=== PATIENT | female | born 1950 | race Caucasian/White ===

== ENCOUNTER 2017-10-02 05:57 | Day surgery (SDC) | payer BC ==
[2017-09-29 11:59] VITALS: BMI 21.9
[~2017-10-02 05:57] MED LIST: DEXAMETHASONE SOD PHOSPHATE 10 MG/ML 1 ML VIAL IV ONE; LACTATED RINGERS 1,000 ML IV SCH; MIDAZOLAM 2 MG/2 ML VIAL IV PRN; ONDANSETRON ODT 4 MG TAB PO ONE; ceFAZolin IN SWFI 2 GM/20 ML SYRINGE IVP ONE; fentaNYL (PF) 50 MCG/ML 2 ML AMP IV PRN
[2017-10-02] MEDS ORDERED: LIDOCAINE 1% 20 ML VIAL (10MG/ML) FOR IV START INTRADERMA ONE (06:43)
[2017-10-02] MEDS ORDERED: ONDANSETRON 4 MG/2 ML VIAL IVP ONE (06:44)
[2017-10-02] MEDS ORDERED: MIDAZOLAM 2 MG/2 ML VIAL ONE (07:57)
[2017-10-02] MEDS ORDERED: LIDOCAINE 1% INJ 10MG/ML (20 ML MDV) ONE (07:57)
[2017-10-02] MEDS ORDERED: PROPOFOL 10 MG/ML 20 ML VIAL IV ONE (07:57)
[2017-10-02] MEDS ORDERED: fentaNYL (PF) 50 MCG/ML 2 ML AMP ONE (07:57)
[2017-10-02 08:48] VITALS: TEMP 97.4
[2017-10-02] MEDS: MORPHINE SULFATE 4 MG/0.8 ML SYRINGE (INJ) IVP ONE ×4 (09:00→09:22)
[2017-10-02] MEDS ORDERED: diphenhydrAMINE 50 MG/ML 1 ML VIAL IVP ONE (09:03)
--- NOTE | 2017-10-02 09:06 | FL ---
EXAMINATION TYPE: FL guidance operating room DATE OF EXAM: 10/02/2017 HISTORY: Flouroscopy time 17 seconds of fluoroscopy provided. IMPRESSION: 1. Fluoroscopy time.
[2017-10-02 11:41] VITALS: RESP 18
[2017-10-02] MEDS ORDERED: HYDROcodone/APAP 5-325MG 1 EACH TAB PO ONE (12:55)
[2017-10-02 13:20] VITALS: BP 116/69; PULSE 72
--- NOTE | 2017-10-02 13:29 | OP ---
OPERATIVE REPORT DATE OF SERVICE: 10/02/2017. SURGEON: Ion Zaman DO. PRINT LINE SUPERVISOR: Olinda Lyn NP. PREOPERATIVE DIAGNOSIS: Dorsal displaced intra-articular fracture of the distal left radius. FINAL DIAGNOSIS: Dorsal displaced intra-articular fracture of the distal left radius. PROCEDURE PERFORMED: A closed reduction of a displaced fracture of the distal left radius with K-wire fixation. DESCRIPTION OF PROCEDURE: The patient was taken to the operative suite and placed in supine position. General inhalation anesthesia was performed by the department of anesthesiology. A gentle closed reduction was performed. A Betadine prep was then carried out in usual manner. Repeat reduction was carried out and C-arm image intensification used. 0.45 K-wires x4 were utilized in stabilizing this fracture of the distal radius. Alignment was maintained.The K-wires were then bent and clipped. A sterile pressure dressing was applied and a dorsal volar OCL splint was applied. The patient was transferred to the recovery room in satisfactory postop condition. GROSS PATHOLOGY: Dorsal displaced intra-articular fracture of the distal left radius. MMODL / IJN: [id number] / [facility]
== END 2017-10-02 13:33 | disposition home or self-care (01) ==
LOC: OR 05:57
PROVIDERS: ATTEND Orthopaedic Surgery
DX: S52.572A Other intraarticular fracture of lower end of left radius, initial encounter for closed fracture (principal); W19.XXXA Unspecified fall, initial encounter; Y92.000 Kitchen of unspecified non-institutional (private) residence as the place of occurrence of the external cause; I10 Essential (primary) hypertension; Z79.899 Other long term (current) drug therapy; Z79.1 Long term (current) use of non-steroidal anti-inflammatories (NSAID); Z88.5 Allergy status to narcotic agent; F17.210 Nicotine dependence, cigarettes, uncomplicated
CPT/HCPCS: 73100; 25606; J2250; J1200; J1100; J2405; J2001; J3010; J2704; J0690; J2270

== ENCOUNTER 2019-12-22 08:49 | Day surgery (SDC) | payer BC ==
[2019-12-19 15:53] VITALS: BMI 21.4
[~2019-12-22 08:49] MED LIST changes: -DEXAMETHASONE SOD PHOSPHATE 10 MG/ML 1 ML VIAL IV ONE; -MIDAZOLAM 2 MG/2 ML VIAL IV PRN; -ONDANSETRON ODT 4 MG TAB PO ONE; -ceFAZolin IN SWFI 2 GM/20 ML SYRINGE IVP ONE; -fentaNYL (PF) 50 MCG/ML 2 ML AMP IV PRN
[2019-12-22 09:14] VITALS: TEMP 98.1
[2019-12-22] MEDS ORDERED: LIDOCAINE 1% (10MG/ML) FOR IV START INTRADERMA ONE (09:15)
[2019-12-22] MEDS ORDERED: LACTATED RINGERS 1,000 ML IV ONE (09:15)
[2019-12-22] MEDS ORDERED: PROPOFOL 10 MG/ML 20 ML VIAL IV ONE (09:49)
--- NOTE | 2019-12-22 09:53 | P.GSHP ---
History of Present Illness H&P Date: 12/22/19 Chief Complaint: Anemia This a 69-year-old female been safe for EGD and colonoscopy. Patient has had issues with anemia. She presents for GI workup. Patient has a known history of hemorrhoids. She has had some mild rectal bleeding. Past Medical History Past Medical History: Hypertension Additional Past Medical History / Comment(s): hx of hemorrhoids History of Any Multi-Drug Resistant Organisms: None Reported Past Surgical History: Cholecystectomy, Orthopedic Surgery Additional Past Surgical History / Comment(s): biliary stents in and removed, pins left wrist Past Anesthesia/Blood Transfusion Reactions: No Reported Reaction Past Psychological History: Depression Past Alcohol Use History: Occasional Additional Past Alcohol Use History / Comment(s): quit smoking 07/2019, SMOKED FOR 50 YEARS. HX OF 1 PPD SMOKER Past Drug Use History: None Reported - Past Family History Mother Family Medical History: No Reported History Medications and Allergies Home Medications Medication Instructions Recorded Confirmed Type PARoxetine HCL [Paxil] 40 mg PO QAM 09/29/17 12/19/19 History Quinapril HCl [Accupril] 10 mg PO QAM 09/29/17 12/19/19 History Ferrous Sulfate [Feosol] 325 mg PO DAILY 12/19/19 12/19/19 History [place]-3 Fatty Acids/Fish Oil [Fish 1 each PO DAILY 12/19/19 12/19/19 History Oil 1,000 mg Softgel] Allergies Allergy/AdvReac Type Severity Reaction Status Date / Time codeine AdvReac Unknown Nausea & Verified 12/19/19 15:50 Vomiting Surgical - Exam Vital Signs Temp Pulse Resp BP Pulse Ox 98.1 F 99 18 190/81 95 12/22/19 09:13 12/22/19 09:13 12/22/19 09:13 12/22/19 09:13 12/22/19 09:13 - General well developed, well nourished, no distress - Eyes PERRL - ENT normal pinna - Neck no masses - Respiratory normal expansion - Cardiovascular Rhythm: regular - Abdomen Abdomen: soft, non tender Assessment and Plan Assessment: Anemia, GI bleed. We'll perform colonoscopy and EGD.
--- NOTE | 2019-12-22 10:16 | P.OP ---
Date of Procedure: 12/22/19 Preoperative Diagnosis: Anemia Postoperative Diagnosis: Antral gastritis Mild esophagitis Transverse colon polyp No evidence of upper or lower GI bleed Procedure(s) Performed: EGD Colonoscopy Anesthesia: MAC Surgeon: Nathan Mcneill Pathology: other (Antrum, esophagus, transverse colon polyp) Condition: stable Disposition: PACU Description of Procedure: She received IV sedation. The gastroscope placed oropharynx passed in the esophagus and stomach. Scope then placed through the pylorus. The first and second portion of the duodenum appeared normal. Scope was then brought back the antrum this. Mildly inflamed. A biopsies performed. Scope was unretroflexed and remainder of the stomach appeared normal. GE junction was at 40 cm the distal esophagus appeared minimally inflamed a biopsies performed. Scope was withdrawn for patient. There is no evidence of upper GI bleed. Next digital rectal exam was performed and there were some minimal internal hemorrhoids. Flexible colonoscope was then placed patient anus passed throughout the entire colon. Ileocecal valve was visualized. Cecum appeared normal. The ascending colon normal. The transverse colon there was a polyp seen this removed with the snare. The remainder of the transverse colon descending colon and sigmoid colon appeared normal. Scope was then brought back the rectum this appeared normal. Scope withdrawn the patient's. There was no evidence of any lower GI bleed.
[2019-12-22 10:29] VITALS: RESP 16
[2019-12-22 10:44] VITALS: BP 116/56; PULSE 79
== END 2019-12-22 11:08 | disposition home or self-care (01) ==
LOC: ORWHC2ENDO 08:49
PROVIDERS: ATTEND Surgery
DX: K63.5 Polyp of colon (principal); K29.50 Unspecified chronic gastritis without bleeding; D50.9 Iron deficiency anemia, unspecified; K64.8 Other hemorrhoids; K21.0 Gastro-esophageal reflux disease with esophagitis; I10 Essential (primary) hypertension; F32.9 Major depressive disorder, single episode, unspecified; K76.0 Fatty (change of) liver, not elsewhere classified; Z90.49 Acquired absence of other specified parts of digestive tract; Z98.890 Other specified postprocedural states; Z87.891 Personal history of nicotine dependence; Z79.899 Other long term (current) drug therapy; Z88.5 Allergy status to narcotic agent
CPT/HCPCS: 88305; 45385; 43239; J2704

== ENCOUNTER 2020-04-05 17:24 | Inpatient (IN) | payer BC ==
[2020-04-05] MEDS ORDERED: PIPERACILLIN-TAZOBACTAM 3.375 GM in SODIUM CHLORIDE 0.9% 100 ML IVPB STA (18:10)
--- NOTE | 2020-04-05 18:14 | ED ---
General Adult HPI - General Chief complaint: Recheck/Abnormal Lab/Rx Stated complaint: weak/ams Time Seen by Provider: 04/05/20 17:37 Source: patient, family Mode of arrival: wheelchair Limitations: no limitations - History of Present Illness Initial comments: Dictation was produced using [employer] dictation software. please excuse any grammatical, word or spelling errors. This patient was cared for during a federal and state declared [place] [facility] [place] [place] [facility] secondary to Covid 19 Chief Complaint: Patient is 69-year-old female presents to the emergency department for fever and jaundice. History of Present Illness: [id number] female she presents to the emergency department for fever and jaundice. Patient was at her primary care physician's office when she was told to come to the emergency department for fever and jaundice. Patient states she's noticed she been having yellowing of the skin since Thursday. Today it started to get significantly worse. Patient has had had 2 or 3 other episodes similar to this that would resolve on its own over the course of one week. Slightly nauseated with diffuse abdominal pain. She has h istory of cholecystectomy. In regards to past episodes of similar symptoms at bedside reports that there was no definitive answer as to why she had jaundice at the time. She patient is non-alcoholic The ROS documented in this emergency department record has been reviewed and confirmed by me. Those systems with pertinent positive or negative responses have been documented in the HPI. All other systems are other negative and/or noncontributory. PHYSICAL EXAM: General Impression: Alert and oriented x3, jaundiced HEENT: Normocephalic atraumatic, extra-ocular movements intact, pupils equal and reactive to light bilaterally, mucous membranes moist, scleral icterus Cardiovascular: Heart regular rate and rhythm Chest: Able to complete full sentences, no retractions, no tachypnea Abdomen: abdomen soft, mild diffuse abdominal tenderness, neg Reynolds sign, non- distended, no organomegaly Musculoskeletal: Pulses present and equal in all extremities, no peripheral edema Motor: no focal deficits noted Neurological: CN II-XII grossly intact, no focal motor or sensory deficits noted Skin: Intact with no visualized rashes Psych: Normal affect and mood ED course: 69-year-old female presents to jaundice and fever. Signs upon arrival shows to 102.7, heart rate of 137, rest of vital signs within acceptable limits. The yellow and having a fever patient looks well at bedside. She c omplains of some mild nausea. Not appear to be in any acute distress.Laboratory evaluation obtained. No leukocytosis. Thrombocytopenia of 95. Rest of labs are within acceptable limits. Coag panel is unremarkable. Metabolic panel shows sodium of 1:30. Lactic acidosis 3.4, AST 183, ALT is 138, alk phos of 564. Total bilirubin of 22.5, conjugated 12.5, conjugated 6.2. Given pyrexia and jaundice is concern of ascending cholangitis. Patient certain Zosyn. Computed tomography scan of the abdomen and pelvis shows dilated biliary tree likely distal common bile duct obstruction suspected. Radiology recommends ERCP or MRCP. Case was discussed with Dr. Calvo, on-call for GI. She requested patient be nothing by mouth at midnight for likely procedure tomorrow morning. Case is discussed with Dr. Blas Goldstein who is willing to accept patient's care in the hospital. At bedside and found to be in stable medical condition. She'll be admitted. Patient not showing any signs of end organ dysfunction. However her clinical presentation concerning for early sepsis. Patient given a fluid bolus and started on maintenance fluids. Pending blood cultures. EKG interpretation: Ventricular rate 133, sinus tachycardia,. 134, QRS 70, QTc 431. No ME prolongation, no QTC prolongation, no ST or T-wave changes noted. EKG compared to 10/02/2017 showing no changes. Overall, this EKG is unremarkable - Related Data Home Medications Medication Instructions Recorded Confirmed Quinapril HCl [Accupril] 10 mg PO QAM 09/29/17 04/05/20 Ciprofloxacin HCl [Cipro] 250 mg PO Q12HR 04/05/20 04/05/20 PARoxetine HCL [Paxil] 40 mg PO DAILY 04/05/20 04/05/20 Prevident 1 dose PO BID 04/05/20 04/05/20 Allergies Allergy/AdvReac Type Severity Reaction Status Date / Time codeine AdvReac Unknown Nausea & Verified 04/05/20 18:52 Vomiting Review of Systems ROS Statement: Those systems with pertinent positive or pertinent negative responses have been documented in the HPI. ROS Other: All systems not noted in ROS Statement are negative. Past Medical History Past Medical History: Hypertension Additional Past Medical History / Comment(s): hx of hemorrhoids, pancreatitis History of Any Multi-Drug Resistant Organisms: None Reported Past Surgical History: Cholecystectomy, Orthopedic Surgery Additional Past Surgical History / Comment(s): biliary stents in and removed, pins left wrist Past Anesthesia/Blood Transfusion Reactions: No Reported Reaction Past Psychological History: Depression Smoking Status: Current every day smoker Past Alcohol Use History: Occasional Past Drug Use History: None Reported - Past Family History Mother Family Medical History: No Reported History General Exam Limitations: no limitations Course Vital Signs 04/05/20 04/05/20 04/05/20 17:28 18:02 18:59 Temperature 100.4 F H 102.7 F H Pulse Rate 129 H 137 H 147 H Respiratory 18 18 18 Rate Blood Pressure 130/80 160/87 111/60 O2 Sat by Pulse 98 98 Oximetry 04/05/20 19:55 Temperature 100.2 F H Pulse Rate 129 H Respiratory 16 Rate Blood Pressure 136/55 O2 Sat by Pulse 96 Oximetry Medical Decision Making - Lab Data Result diagrams: 04/05/20 18:09 04/05/20 18:09 Lab Results 04/05/20 04/05/20 04/05/20 Range/Units 18:09 18:09 18:09 WBC 8.4 (3.8-10.6) k/uL RBC 3.71 L (3.80-5.40) m/uL Hgb 10.9 L (11.4-16.0) gm/dL Hct 32.7 L (34.0-46.0) % MCV 88.3 (80.0-100.0) fL MCH 29.4 (25.0-35.0) pg MCHC 33.3 (31.0-37.0) g/dL RDW 18.0 H (11.5-15.5) % Plt Count 95 L (150-450) k/uL Neutrophils % (Manual) 67 % Band Neuts % (Manual) 2 % Lymphocytes % (Manual) 19 % Monocytes % (Manual) 6 % Eosinophils % (Manual) 1 % Metamyelocytes % 5 % Myelocytes % 2 % Neutrophils # (Manual) 5.70 (1.3-7.7) k/uL Lymphocytes # (Manual) 1.60 (1.0-4.8) k/uL Monocytes # (Manual) 0.50 (0-1.0) k/uL Eosinophils # (Manual) 0.08 (0-0.7) k/uL Metamyelocytes # (Man) 0.42 H (0) k/uL Myelocytes # (Manual) 0.17 H (0) k/uL Nucleated RBCs 1 H (0-0) /100 WBC Manual Slide Review Performed Toxic Granulation Present Large Platelets Present Polychromasia Present Anisocytosis Slight PT 10.2 (9.0-12.0) sec INR 1.0 (<1.2) APTT 22.4 (22.0-30.0) sec Sodium 130 L (137-145) mmol/L Potassium 3.6 (3.5-5.1) mmol/L Chloride 94 L (98-107) mmol/L Carbon Dioxide 22 (22-30) mmol/L Anion Gap 14 mmol/L BUN 26 H (7-17) mg/dL Creatinine 1.12 H (0.52-1.04) mg/dL Est GFR (CKD-EPI)AfAm 57 (>60 ml/min/1.73 sqM) Est GFR (CKD-EPI)NonAf 50 (>60 ml/min/1.73 sqM) Glucose 147 H (74-99) mg/dL Plasma Lactic Acid Addi (0.7-2.0) mmol/L Calcium 9.0 (8.4-10.2) mg/dL Magnesium 1.9 (1.6-2.3) mg/dL Total Bilirubin 22.5 H* (0.2-1.3) mg/dL Conjugated Bilirubin 12.5 H (0.0-0.3) mg/dL Unconjugated Bilirubin 6.2 H (0.0-1.1) mg/dL Delta Bilirubin 3.8 H (0.0-0.2) mg/dL AST 183 H (14-36) U/L ALT 138 H (4-34) U/L Alkaline Phosphatase 564 H (38-126) U/L Total Protein 8.1 (6.3-8.2) g/dL Albumin 4.3 (3.5-5.0) g/dL Lipase 158 (23-300) U/L 04/05/20 Range/Units 18:09 WBC (3.8-10.6) k/uL RBC (3.80-5.40) m/uL Hgb (11.4-16.0) gm/dL Hct (34.0-46.0) % MCV (80.0-100.0) fL MCH (25.0-35.0) pg MCHC (31.0-37.0) g/dL RDW (11.5-15.5) % Plt Count (150-450) k/uL Neutrophils % (Manual) % Band Neuts % (Manual) % Lymphocytes % (Manual) % Monocytes % (Manual) % Eosinophils % (Manual) % Metamyelocytes % % Myelocytes % % Neutrophils # (Manual) (1.3-7.7) k/uL Lymphocytes # (Manual) (1.0-4.8) k/uL Monocytes # (Manual) (0-1.0) k/uL Eosinophils # (Manual) (0-0.7) k/uL Metamyelocytes # (Man) (0) k/uL Myelocytes # (Manual) (0) k/uL Nucleated RBCs (0-0) /100 WBC Manual Slide Review Toxic Granulation Large Platelets Polychromasia Anisocytosis PT (9.0-12.0) sec INR (<1.2) APTT (22.0-30.0) sec Sodium (137-145) mmol/L Potassium (3.5-5.1) mmol/L Chloride (98-107) mmol/L Carbon Dioxide (22-30) mmol/L Anion Gap mmol/L BUN (7-17) mg/dL Creatinine (0.52-1.04) mg/dL Est GFR (CKD-EPI)AfAm (>60 ml/min/1.73 sqM) Est GFR (CKD-EPI)NonAf (>60 ml/min/1.73 sqM) Glucose (74-99) mg/dL Plasma Lactic Acid Addi 3.4 H* (0.7-2.0) mmol/L Calcium (8.4-10.2) mg/dL Magnesium (1.6-2.3) mg/dL Total Bilirubin (0.2-1.3) mg/dL Conjugated Bilirubin (0.0-0.3) mg/dL Unconjugated Bilirubin (0.0-1.1) mg/dL Delta Bilirubin (0.0-0.2) mg/dL AST (14-36) U/L ALT (4-34) U/L Alkaline Phosphatase (38-126) U/L Total Protein (6.3-8.2) g/dL Albumin (3.5-5.0) g/dL Lipase (23-300) U/L Disposition Clinical Impression: Biliary obstruction Disposition: ADMITTED IP TO THIS HOSP Condition: Fair Referrals: Tete Goldstein DO [Primary Care Provider] - 1-2 days Time of Disposition: 20:09
[2020-04-05 18:30] LABS: Albumin 4.3 g/dL (3.5-5.0); Bilirubin, Conjugated 12.5 mg/dL (0.0-0.3); Bilirubin, Delta 3.8 mg/dL (0.0-0.2); Bilirubin,Unconjugated 6.2 mg/dL (0.0-1.1); Magnesium 1.9 mg/dL (1.6-2.3); Potassium 3.6 mmol/L (3.5-5.1); Total Protein 8.1 g/dL (6.3-8.2)
--- NOTE | 2020-04-05 18:34 | XR ---
EXAMINATION TYPE: XR chest 1V portable DATE OF EXAM: 04/05/2020 COMPARISON: NONE HISTORY: Fever jaundice TECHNIQUE: Single view FINDINGS: There is no heart failure nor confluent pneumonic infiltrate. Costophrenic angles are clear . There are chest leads. Bony thorax is intact. IMPRESSION: No active cardiopulmonary disease. Normal heart.
[2020-04-05 18:36] LABS: Anisocytosis Slight; HCT 32.7 % (34.0-46.0); HGB 10.9 gm/dL (11.4-16.0); MCH 29.4 pg (25.0-35.0); MCHC 33.3 g/dL (31.0-37.0); MCV 88.3 fL (80.0-100.0); Mean Platelet Volume 10.3; RBC 3.71 m/uL (3.80-5.40)
[2020-04-05 18:45] LABS: Partial Thromboplastin Time 22.4 sec (22.0-30.0); Prothrombin Time 10.2 sec (9.0-12.0)
[2020-04-05] MEDS ORDERED: ACETAMINOPHEN TAB 500 MG TAB PO STA (18:46)
[2020-04-05 18:53] LABS: Band Neutrophils % 2 %; Metamyelocytes % 5 %; Myelocytes # (M) 0.17 k/uL (0); Myelocytes % 2 %; Neutrophils % (M) 67 %; Nucleated Red Blood Cells 1 /100 WBC (0-0); Total Cells Counted 200
[2020-04-05 18:54] LABS: Eosinophils # (M) 0.08 k/uL (0-0.7); Large Platelets Present; Metamyelocytes # (M) 0.42 k/uL (0); Polychromasia Present; Toxic Granulation Present; WBC 8.4 k/uL (3.8-10.6)
[2020-04-05 18:55] LABS: Platelet Count 95 k/uL (150-450)
[2020-04-05 19:00] LABS: Total Bilirubin 22.5 mg/dL (0.2-1.3)
--- NOTE | 2020-04-05 19:52 | CT ---
EXAMINATION TYPE: CT abdomen pelvis w con DATE OF EXAM: 04/05/2020 COMPARISON: None HISTORY: Abdominal pain, fever, jaundiced, weak CT DLP: 655.5 mGycm Automated exposure control for dose reduction was used. CONTRAST: Performed with IV Contrast, patient injected with 100 mL of Isovue 300. Images were obtained from the diaphragm to the floor the pelvis with IV contrast. Lung bases are clear. There is no pleural effusion. Heart size is normal. There is no pericardial eff usion. There are clips from cholecystectomy. There is dilation of the intra and extrahepatic bile ducts. Com mon bile duct measures 3.2 cm. There is no pancreatic mass. Spleen is large and measures 12 x 9 cm. T he stomach is intact. There is no adrenal mass. Kidneys show satisfactory contrast opacification. There is no hydronephrosi s. There is no sign of renal mass. There is no retroperitoneal adenopathy. Ureters are not dilated. T he bladder distends smoothly. There is no inguinal hernia. There is some contrast material in the sig moid colon. There is no pelvic mass. There is no free fluid in the pelvis. There is no mesenteric edema. There is no ascites or free air. Lumbar vertebra have normal alignment. There is 10% wedging of L2 vertebral body that is probably old . The bony pelvis is intact. The hip joints are intact. IMPRESSION: Dilated biliary tree. Distal common bile duct obstruction is suspected. No obstructing mass seen. Thi s could relate to a stricture or common duct stone. ERCP or MRCP exam recommended for further evaluat ion if clinically indicated.
[2020-04-05] MEDS ORDERED: SODIUM CHLORIDE 0.9% 1,000 ML IV STA (19:58)
[2020-04-05] MEDS ORDERED: NALOXONE 0.4 MG/ML 1 ML VIAL IV PRN (20:03)
[2020-04-05] MEDS: SODIUM CHLORIDE 0.9% 1,000 ML IV SCH (21:29)
[2020-04-05 22:56] LABS: Appearance,Urine Cloudy (Clear); Bacteria,Urine Rare /hpf; Bilirubin,Urine 2+ (Negative); Blood,Urine Trace (Negative); Color,Urine Dark Yellow; Glucose,Urine (UA) Negative (Negative); Ketones,Urine Negative (Negative); Leukocyte Esterase,Urine Negative (Negative); Nitrite,Urine Negative (Negative); PH, Urine 5.5 (5.0-8.0); Protein,Urine Trace (Negative); RBC,Urine 1 /hpf (0-5); Specific Gravity,Urine 1.039 (1.001-1.035); Squamous Epithelial Cell,Urine 5 /hpf (0-4); WBC,Urine 12 /hpf (0-5)
[2020-04-06] MEDS: SODIUM CHLORIDE 0.9% 1,000 ML IV SCH ×3 (04:25→22:44)
[2020-04-06 09:08] LABS: Anisocytosis Slight; HCT 27.5 % (34.0-46.0); Hypochromasia Slight; MCH 28.8 pg (25.0-35.0); MCHC 32.2 g/dL (31.0-37.0); MCV 89.5 fL (80.0-100.0); Mean Platelet Volume 11.9; RBC 3.07 m/uL (3.80-5.40); RDW 18.2 % (11.5-15.5)
[2020-04-06 09:12] LABS: Platelet Count 39 k/uL (150-450)
[2020-04-06 09:13] LABS: HGB 8.9 gm/dL (11.4-16.0)
[2020-04-06 09:22] LABS: ALT 195 U/L (4-34); AST 330 U/L (14-36); African American GFR (CKD) >90 (>60 ml/min/1.73 sqM); Albumin 3.1 g/dL (3.5-5.0); Alkaline Phosphatase 364 U/L (38-126); Amylase <30 U/L (30-110); Anion Gap 11 mmol/L; Blood Urea Nitrogen 19 mg/dL (7-17); Calcium 7.8 mg/dL (8.4-10.2); Carbon Dioxide 19 mmol/L (22-30); Chloride 102 mmol/L (98-107); Glucose 105 mg/dL (74-99); Lipase 33 U/L (23-300); Non-African American GFR(CKD) 80 (>60 ml/min/1.73 sqM); Potassium 3.2 mmol/L (3.5-5.1); Sodium 132 mmol/L (137-145); Total Protein 6.4 g/dL (6.3-8.2)
[2020-04-06 09:23] LABS: Total Bilirubin 20.1 mg/dL (0.2-1.3)
[2020-04-06 09:26] LABS: Toxic Granulation Present
[2020-04-06 09:34] LABS: Band Neutrophils % 4 %; Metamyelocytes # (M) 0.25 k/uL (0); Metamyelocytes % 2 %; Myelocytes % 1 %; Neutrophils % (M) 75 %; Nucleated Red Blood Cells 1 /100 WBC (0-0); Total Cells Counted 200
[2020-04-06 09:35] LABS: Blast Cells # (M) 0.12 k/uL (0); Lymphocytes # (M) 1.12 k/uL (1.0-4.8); Monocytes # (M) 1.12 k/uL (0-1.0); Myelocytes # (M) 0.12 k/uL (0); Toxic Vacuolation Present; WBC 12.4 k/uL (3.8-10.6)
[2020-04-06] MEDS: PIPERACILLIN-TAZOBACTAM 3.375 GM in SODIUM CHLORIDE 0.9% 100 ML IVPB SCH ×3 (09:41→23:21)
[2020-04-06] MEDS: PARoxetine 20 MG TAB PO SCH (09:41)
[2020-04-06] MEDS: lisinopriL 10 MG TAB PO SCH (09:41)
[2020-04-06] MEDS ORDERED: Potassium Replacement Protocol 1 EACH MISC MISCELLANE PRN (11:00)
[2020-04-06] MEDS: POTASSIUM CHLORIDE ER 20 MEQ TAB.ER PO SCH ×2 (11:09→12:25)
[2020-04-06] MEDS ORDERED: INDOMETHACIN 50MG SUPPOSITORY RECTAL ONE (12:00)
[2020-04-06] MEDS ORDERED: IV FLUID CONTINUATION 1,000 ML IV ONE (14:09)
[2020-04-06] MEDS ORDERED: IOPAMIDOL-300 50ML BTL INJ ONE ×2 (14:10→14:21)
[2020-04-06] MEDS ORDERED: PROPOFOL 10 MG/ML 20 ML VIAL IV ONE (14:15)
[2020-04-06] MEDS ORDERED: LIDOCAINE 1% INJ 10MG/ML (20 ML MDV) ONE (14:15)
[2020-04-06] MEDS ORDERED: GLYCOPYRROLATE 0.2 MG/ML 2 ML VIAL ONE (14:15)
--- NOTE | 2020-04-06 14:52 | P.PCN ---
Date of Procedure: 04/06/20 Procedure(s) Performed: Brief history: Patient is a year-old pleasant lady scheduled for an ERCP as part of evaluation of abdominal pain and jaundice for the last 2 weeks' duration. She came into the ER last night and had a fever of 102 with mild leukocytosis and a CAT scan showed dilated CBD measuring 3 cm with no masses or filling defects identified. The patient had prior history of CBD stones for which she underwent an ERCP with stone extraction and CBD stent placement and March 2017. Subsequently she did have cholecystectomy done. She is scheduled for an ERCP for possible choledocholithiasis. Patient was noted to have some cytopenia with a platelet count 39,000 and hence was transfused with platelets prior to the procedure. Procedure performed: ERCP with balloon stone extraction and CBD stent placement Preoperative diagnoses: Elevated LFTs/jaundice/ascending cholangitis IV sedation per anesthesia: Procedure: After informed consent was obtained from the patient and after the risks benefits and complications including bleeding perforation and pancreatitis explained in detail the patient was brought into the endoscopy unit. The patient was placed in prone position and IV conscious sedation was administered by anesthesia under continuous monitoring. The Olympus side-viewing duodenoscope was then inserted into the mouth and esophagus intubated without any difficulty. The scope was gradually advanced into the stomach and duodenum. The major papilla was identified without any difficulty. There was evidence of previous biliary sphincterotomy identified. Initial cannulation with a taper- tip catheter resulted in presentation the common bile duct which appeared significant dilated measuring 2 cm in diameter with multiple filling defects identified. There was mild intrahepatic biliary ductal dilation noted. There was free flowing of bile noted. At this time the catheter was removed and 11.5 limited balloon was passed into the common bile duct and was gently inflated and withdrawn. I was not able to withdraw the 11.5 mm balloon through the ampullary orifice. Then I used a 8.5 mm balloon and large amount of sludge along with small stones were extracted. This maneuver was repeated at least 15-20 times and once of bile became much more clear a 7-Dominican, 5 cm double pigtail stent was placed into the common bile duct for adequate biliary drainage. Extension of the biliary sphincterotomy was not performed because of thrombocytopenia. Patient tolerated the procedure well. Impression: Significantly dilated common bile duct with gradual tapering at the insertion into the ampulla with large multiple filling defects status post balloon extraction of multiple CBD stones and significant amount of sludge, followed by 7-Dominican 5 cm between stent placement Pancreatic duct intentionally not cannulated Recommendations: The findings of this examination were discussed with the patient as well as a family . At this time continue with antibiotics and monitor LFTs closely. We will plan a repeat ERCP with extension of biliary sphincterotomy an outpatient basis once her platelet counts normalized
--- NOTE | 2020-04-06 15:31 | FL ---
Fluoroscopy HISTORY: Dilated common bile duct 20 seconds fluoroscopy time supplied to the referring clinician. 4 intraoperative C-arm images docum ent the procedure. See dictated report from gastroenterology.
--- NOTE | 2020-04-06 15:42 | P.CONS ---
History of Present Illness - Reason for Consult Consult date: 04/06/20 Blast Cells, thrombocytopenia Requesting physician: Leslye Hallman - Chief Complaint Bicytopenia - History of Present Illness Ms. Montgomery is a pleasant 69 year old female who presents with jaundice and abdominal pain. CT scan showed concern for CBD obstruction. She underwent ERCP with Dr. Calvo revealing significantly dilated common bile duct likely a result of multiple CBD stones and significant amount of sludge. She initially presented to emergency with progressive jaundice, abdominal pain, and last night febrile 102. WBC on admission showed mild Leukocytosis, mainly neutrophils, Platelets decreased, today 39K, and some evidence of immature cells blasts 1%. Her Total bili greater than 20, LFTS increased. She had prior history of CBD stones for which she underwent an ERCP with stone extraction and CBD stent placement and March 2017. Subsequently she did have cholecystectomy done at that time. Apparently over the past year she has been becoming pregressively more anemic. She underwent endoscopy with general surgery (Dr. Mcneill) in December of this year which did not reveal any significant abnormalities. Review of Systems All systems: negative Constitutional: Reports as per HPI Past Medical History Past Medical History: Hypertension Additional Past Medical History / Comment(s): hx of hemorrhoids, pancreatitis History of Any Multi-Drug Resistant Organisms: None Reported Past Surgical History: Cholecystectomy, Orthopedic Surgery Additional Past Surgical History / Comment(s): biliary stents in and removed, pins left wrist Past Anesthesia/Blood Transfusion Reactions: No Reported Reaction Past Psychological History: Depression Smoking Status: Current every day smoker Past Alcohol Use History: Occasional Additional Past Alcohol Use History / Comment(s): quit smoking 07/2019, SMOKED FOR 50 YEARS. HX OF 1 PPD SMOKER Past Drug Use History: None Reported - Past Family History Mother Family Medical History: No Reported History Medications and Allergies Home Medications Medication Instructions Recorded Confirmed Type Quinapril HCl [Accupril] 10 mg PO QAM 09/29/17 04/05/20 History Ciprofloxacin HCl [Cipro] 250 mg PO Q12HR 04/05/20 04/05/20 History PARoxetine HCL [Paxil] 40 mg PO DAILY 04/05/20 04/05/20 History Prevident 1 dose PO BID 04/05/20 04/05/20 History Allergies Allergy/AdvReac Type Severity Reaction Status Date / Time codeine AdvReac Unknown Nausea & Verified 04/05/20 18:52 Vomiting Physical Exam Vitals: Vital Signs Temp Pulse Pulse Resp BP BP Pulse Ox 04/06/20 15:22 98 14 128/70 98 04/06/20 14:00 97.7 F 96 18 04/06/20 12:00 119 H 18 97/58 97 04/06/20 08:00 98.6 F 117 H 22 129/64 95 04/06/20 06:11 100.4 F H 136 H 20 148/61 97 04/06/20 03:49 99.1 F 112 H 20 129/71 97 04/06/20 00:00 99.3 F 126 H 20 130/67 95 04/05/20 22:58 99.3 F 126 H 18 130/67 95 04/05/20 22:26 99.2 F 124 H 18 151/74 97 04/05/20 19:55 100.2 F H 129 H 16 136/55 96 04/05/20 18:59 147 H 18 111/60 98 04/05/20 18:02 102.7 F H 137 H 18 160/87 04/05/20 17:28 100.4 F H 129 H 18 130/80 98 Intake and Output 04/06/20 04/06/20 04/06/20 06:59 14:59 22:59 Intake Total 60 636 Output Total 150 Balance -90 636 Intake: IV 300 Oral 60 Blood Product 336 Platelet Pheresis Pas 336 Psoralen Unit [id number] Output: Urine 150 Other: # Voids 2 1 Weight 59.5 kg - Constitutional General appearance: cooperative, no acute distress - EENT Eyes: PERRLA, dentition normal ENT: hard of hearing, NA/AT, normal oropharynx - Neck supple - Respiratory Respiratory: bilateral: CTA - Cardiovascular Tachy Rhythm: regular leg Peripheral Edema: bilateral: Trace - Gastrointestinal General gastrointestinal: decreased bowel sounds, distended, hepatomegaly - Integumentary Integumentary: jaundiced - Neurologic non-focal - Musculoskeletal Musculoskeletal: generalized weakness, strength equal bilaterally - Psychiatric Psychiatric: A&O x's 3, appropriate affect Results CBC & Chem 7: 04/06/20 08:40 04/06/20 08:40 Labs: Abnormal Lab Results - Last 24 Hours (Table) 10/29/20 10/29/20 10/29/20 Range/Units 18:09 18:09 18:09 WBC (3.8-10.6) k/uL RBC 3.71 L (3.80-5.40) m/uL Hgb 10.9 L (11.4-16.0) gm/dL Hct 32.7 L (34.0-46.0) % RDW 18.0 H (11.5-15.5) % Plt Count 95 L (150-450) k/uL Blast Cells % % Neutrophils # (Manual) (1.3-7.7) k/uL Monocytes # (Manual) (0-1.0) k/uL Metamyelocytes # (Man) 0.42 H (0) k/uL Myelocytes # (Manual) 0.17 H (0) k/uL Blast Cells # (Man) (0) k/uL Nucleated RBCs 1 H (0-0) /100 WBC Sodium 130 L (137-145) mmol/L Potassium (3.5-5.1) mmol/L Chloride 94 L (98-107) mmol/L Carbon Dioxide (22-30) mmol/L BUN 26 H (7-17) mg/dL Creatinine 1.12 H (0.52-1.04) mg/dL Glucose 147 H (74-99) mg/dL Plasma Lactic Acid Addi 3.4 H* (0.7-2.0) mmol/L Calcium (8.4-10.2) mg/dL Total Bilirubin 22.5 H* (0.2-1.3) mg/dL Conjugated Bilirubin 12.5 H (0.0-0.3) mg/dL Unconjugated Bilirubin 6.2 H (0.0-1.1) mg/dL Delta Bilirubin 3.8 H (0.0-0.2) mg/dL AST 183 H (14-36) U/L ALT 138 H (4-34) U/L Alkaline Phosphatase 564 H (38-126) U/L Albumin (3.5-5.0) g/dL Amylase (30-110) U/L Urine Appearance (Clear) Ur Specific [place] (1.001-1.035) Urine Protein (Negative) Urine Blood (Negative) Urine Bilirubin (Negative) Urine WBC (0-5) /hpf Ur Squamous Epith Cells (0-4) /hpf Urine Bacteria (None) /hpf 10/29/20 10/30/20 10/30/20 Range/Units 18:09 08:40 08:40 WBC 12.4 H (3.8-10.6) k/uL RBC 3.07 L (3.80-5.40) m/uL Hgb 8.9 L D (11.4-16.0) gm/dL Hct 27.5 L (34.0-46.0) % RDW 18.2 H (11.5-15.5) % Plt Count 39 L D (150-450) k/uL Blast Cells % 1 H* % Neutrophils # (Manual) 9.70 H (1.3-7.7) k/uL Monocytes # (Manual) 1.12 H (0-1.0) k/uL Metamyelocytes # (Man) 0.25 H (0) k/uL Myelocytes # (Manual) 0.12 H (0) k/uL Blast Cells # (Man) 0.12 H (0) k/uL Nucleated RBCs 1 H (0-0) /100 WBC Sodium 132 L (137-145) mmol/L Potassium 3.2 L (3.5-5.1) mmol/L Chloride (98-107) mmol/L Carbon Dioxide 19 L (22-30) mmol/L BUN 19 H (7-17) mg/dL Creatinine (0.52-1.04) mg/dL Glucose 105 H (74-99) mg/dL Plasma Lactic Acid Addi (0.7-2.0) mmol/L Calcium 7.8 L (8.4-10.2) mg/dL Total Bilirubin 20.1 H* (0.2-1.3) mg/dL Conjugated Bilirubin (0.0-0.3) mg/dL Unconjugated Bilirubin (0.0-1.1) mg/dL Delta Bilirubin (0.0-0.2) mg/dL AST 330 H (14-36) U/L ALT 195 H (4-34) U/L Alkaline Phosphatase 364 H (38-126) U/L Albumin 3.1 L (3.5-5.0) g/dL Amylase <30 L (30-110) U/L Urine Appearance Cloudy H (Clear) Ur Specific [place] 1.039 H (1.001-1.035) Urine Protein Trace H (Negative) Urine Blood Trace H (Negative) Urine Bilirubin 2+ H (Negative) Urine WBC 12 H (0-5) /hpf Ur Squamous Epith Cells 5 H (0-4) /hpf Urine Bacteria Rare H (None) /hpf Microbiology - Last 24 Hours (Table) 04/05/20 18:09 Urine Culture - Preliminary Urine,Voided Chest x-ray: report reviewed CT scan - abdomen: report reviewed CT scan - pelvis: report reviewed Assessment and Plan (1) Normocytic anemia Current Visit: Yes Status: Acute Code(s): D64.9 - ANEMIA, UNSPECIFIED SNOMED Code(s): 962689160 (2) Thrombocytopenia Current Visit: Yes Status: Acute Code(s): D69.6 - THROMBOCYTOPENIA, UNSPECIFIED SNOMED Code(s): 243968902 (3) Leukocytosis (leucocytosis) Current Visit: Yes Status: Acute Code(s): D72.829 - ELEVATED WHITE BLOOD CELL COUNT, UNSPECIFIED SNOMED Code(s): 481434700 Plan: Assessment and Recommendations: Common Bile Duct Obstruction secondary to multiple stones: -Status Post ERCP with stone removal and Stent with GI, Dr. Calvo Normocytic Anemia: - Further work-up in place - Colonoscopy and EGD Neg in 12/2019 - Await workup of other underlying problems SIRS/SEPSIS: - Per Primary team Increased LFTs and Bili: - Secondary to above Thrombocytopenia: - Recheck Coags: PT, PTT, INR and Fibrinogen (in picture of fever, declining liver function) Leukocytosis: - Likely secondary to infectious inflammatory - Mainly Neutrophilia - Peripheral smear is pending per primary team, likely blast presented as reactive to SIRS/Sepsis Physician Attest: I have completed the full history and physical and devloped the above impression and plan, agree with TE[employer] ROCKET [employer]INE dictation, dictated as a scribe.
--- NOTE | 2020-04-06 15:54 | CONS ---
CONSULTATION DATE OF DICTATION: 04/06/2020 REQUESTING PHYSICIAN: Dr. Goldstein. REASON FOR CONSULTATION: Obstructive jaundice, possible ascending cholangitis. HISTORY OF PRESENT ILLNESS: The patient is a 69-year-old pleasant white female who presented to the emergency room because of fever, abdominal pain, yellowish discoloration of skin on and off for the last few days duration. She was explaining some right upper quadrant abdominal pain associated with some nausea for the last 2 weeks and noticed her urine was turning dark and her skin was turning yellow. For 2 days the pain was gradually worsening and she had low-grade fever, hence, came into the emergency room last night and had a fever of 102.3. She had labs done in the ER that showed a bilirubin of 20 with mild elevation of serum transaminases. She did have a CT of the abdomen and pelvis done that showed dilated common bile duct measuring 3 cm with no obvious filling defects or pancreatic mass identified. Patient states that she had CBD stones in March of 2017 and she had an attempted ERCP at [facility] that was unsuccessful and subsequently was transferred to [place]. She underwent ERCP with CBD stone extraction and biliary sphincterotomy. Subsequently, she developed a bile leak and had stents placed which were removed in July of 2017. Since then, she has been having intermittent episodes of jaundice that lasts for 1 or 2 days and resolve. She never had a repeat ERCP since then. PAST MEDICAL HISTORY: Significant for hypertension. PAST SURGICAL HISTORY: Cholecystectomy, ERCP. MEDICATIONS: At home include Paxil, Cipro, Accupril. ALLERGIES: To CODEINE. SOCIAL HISTORY: No smoking, no alcohol use. FAMILY HISTORY: Unremarkable. REVIEW OF SYSTEMS: CARDIOPULMONARY: She denies any chest pain, shortness of breath. : No dysuria or hematuria. MUSCULOSKELETAL: Unremarkable. SKIN Unremarkable other than yellowish discoloration. NEUROLOGY: Unremarkable. PSYCHIATRIC: Unremarkable. ENT/VISION: Unremarkable. CONSTITUTIONAL: No recent weight loss. No fever, chills, night sweats. PHYSICAL EXAMINATION: Temperature T-max was 102.7, today it is 100.4. Pulse rate 137 and blood pressure 160/87. HEENT: Examination unremarkable, conjunctivae are pink, sclerae deeply icteric. Oral cavity no lesions. NECK: No JVD or lymph node enlargement. CHEST: Clear to auscultation. HEART: Regular rate and rhythm. ABDOMEN: Soft, bowel sounds are positive. Mild tenderness in the epigastric and right upper quadrant area. Rest of the abdomen was benign. EXTREMITIES: No pedal edema. SKIN: No rashes. NEUROLOGIC: Alert and oriented x3. No focal deficits. LABS: Done at the time of admission to the hospital, WBC was 8.4, hemoglobin 10.9, and platelets were 95,000. Today WBC 12.4, hemoglobin 8.9, platelets 39,000. Differential diagnosis showed metamyelocytes and myelocytes and some seen. INR is normal, T bilirubin is 22.5 and today it is 20.1. AST and ALT are 183 and 138 respectively, alkaline phosphatase 564. Amylase and lipase are normal. BUN and creatinine are 26 and 1.12 respectively. IMPRESSION: This is a lady who presents to the hospital with vague abdominal pain for the last 2 weeks' duration associated with jaundice and fever for the last few days' duration. CT showed dilated CBD. She has history of choledocholithiasis for which she underwent ERCP with CBD stone extraction about 3 years ago. Likely she has ascending cholangitis secondary to recurrent choledocholithiasis. RECOMMENDATIONS: 1. Start her on broad-spectrum antibiotics. 2. Keep her n.p.o. 3. I had a lengthy discussion with the patient regarding proceeding with an ERCP. Discussed with her risks, benefits and complications of the procedure. Because of the thrombocytopenia, will give her platelet transfusion prior to the procedure. Patient is agreeable to it. In the meantime, continue with antibiotics. Follow LFTs closely. 4. Will follow with you. 5. Thank you for this consultation. MMODL / IJN: [id number] /
--- NOTE | 2020-04-06 23:21 | P.HPIM ---
History of Present Illness H&P Date: 04/06/20 Chief Complaint: abd pain Ariadna Montgomery is a 69 yo F with PMH of previous biliary obstruction, hx ERCP, HTN who presented to the ED complaining of abdominal pain, nausea, vomiting and fever over the past few days. She complains of nausea and poor appetite for over a week but her symptoms progressed in the past few days. On presentation she was febrile and tachycardic, bilirubin [address] abd/pelvis with dilated biliary tree suspicious for obstruction. 1% Blast cells were noted on blood count along with thrombocytopenia. Review of Systems All systems: negative Constitutional: Reports anorexia, Reports fever, Reports malaise, Reports weakness, Denies chills Eyes: denies blurred vision, denies pain Ears, nose, mouth and throat: Denies headache, Denies sore throat Cardiovascular: Denies chest pain, Denies shortness of breath Respiratory: Denies cough Gastrointestinal: Reports abdominal pain, Reports jaundice, Reports loss of appetite, Reports nausea, Reports vomiting, Denies diarrhea Genitourinary: Denies dysuria, Denies hematuria Musculoskeletal: Denies myalgias Integumentary: Denies pruritus, Denies rash Neurological: Denies numbness, Denies weakness Psychiatric: Denies anxiety, Denies depression Endocrine: Denies fatigue, Denies weight change Past Medical History Past Medical History: Hypertension Additional Past Medical History / Comment(s): hx of hemorrhoids, pancreatitis History of Any Multi-Drug Resistant Organisms: None Reported Past Surgical History: Cholecystectomy, Orthopedic Surgery Additional Past Surgical History / Comment(s): biliary stents in and removed, pins left wrist Past Anesthesia/Blood Transfusion Reactions: No Reported Reaction Past Psychological History: Depression Smoking Status: Current every day smoker Past Alcohol Use History: Occasional Additional Past Alcohol Use History / Comment(s): quit smoking 07/2019, SMOKED FOR 50 YEARS. HX OF 1 PPD SMOKER Past Drug Use History: None Reported - Past Family History Mother Family Medical History: No Reported History Medications and Allergies Home Medications Medication Instructions Recorded Confirmed Type Quinapril HCl [Accupril] 10 mg PO QAM 09/29/17 04/05/20 History Ciprofloxacin HCl [Cipro] 250 mg PO Q12HR 04/05/20 04/05/20 History PARoxetine HCL [Paxil] 40 mg PO DAILY 04/05/20 04/05/20 History Prevident 1 dose PO BID 04/05/20 04/05/20 History Allergies Allergy/AdvReac Type Severity Reaction Status Date / Time codeine AdvReac Unknown Nausea & Verified 04/05/20 18:52 Vomiting Physical Exam Vitals: Vital Signs Temp Pulse Pulse Resp BP Pulse Ox 04/06/20 20:00 97.4 F L 95 19 101/64 97 04/06/20 15:22 98 14 128/70 98 04/06/20 14:00 97.7 F 96 18 04/06/20 12:00 119 H 18 97/58 97 04/06/20 08:00 98.6 F 117 H 22 129/64 95 04/06/20 06:11 100.4 F H 136 H 20 148/61 97 04/06/20 03:49 99.1 F 112 H 20 129/71 97 04/06/20 00:00 99.3 F 126 H 20 130/67 95 Intake and Output 04/06/20 04/06/20 04/07/20 14:59 22:59 06:59 Intake Total 636 300 Balance 636 300 Intake: IV 300 Oral 300 Blood Product 336 Platelet Pheresis Pas 336 Psoralen Unit [id number] Other: # Voids 1 2 General: Jaundiced, NAD. Vitals reviewed Eyes: PERRL, EOMI, conjunctiva normal. Scleral icterus HENT: normocephalic, mucus membranes moist Neck: supple, no JVD Lungs: normal respiratory effort, no wheezes or rales CV: Regular rate and rhythm, no murmur. Peripheral pulses 2+ Abdomen: soft, tenderness epigastric, RUQ. BS present Lymph: no cervical or axillary LAD Skin: warm and dry. Neuro: A&Ox3, normal mood and affect Results CBC & Chem 7: 04/06/20 08:40 04/06/20 08:40 Labs: Abnormal Lab Results - Last 24 Hours (Table) 04/06/20 04/06/20 04/06/20 Range/Units 08:40 08:40 08:40 WBC 12.4 H (3.8-10.6) k/uL RBC 3.07 L (3.80-5.40) m/uL Hgb 8.9 L D (11.4-16.0) gm/dL Hct 27.5 L (34.0-46.0) % RDW 18.2 H (11.5-15.5) % Plt Count 39 L D (150-450) k/uL Blast Cells % 1 H* % Neutrophils # (Manual) 9.70 H (1.3-7.7) k/uL Monocytes # (Manual) 1.12 H (0-1.0) k/uL Metamyelocytes # (Man) 0.25 H (0) k/uL Myelocytes # (Manual) 0.12 H (0) k/uL Blast Cells # (Man) 0.12 H (0) k/uL Nucleated RBCs 1 H (0-0) /100 WBC Pathologist Review See comment A Sodium 132 L (137-145) mmol/L Potassium 3.2 L (3.5-5.1) mmol/L Carbon Dioxide 19 L (22-30) mmol/L BUN 19 H (7-17) mg/dL Glucose 105 H (74-99) mg/dL Calcium 7.8 L (8.4-10.2) mg/dL Total Bilirubin 20.1 H* (0.2-1.3) mg/dL AST 330 H (14-36) U/L ALT 195 H (4-34) U/L Alkaline Phosphatase 364 H (38-126) U/L Lactate Dehydrogenase 1653 H (313-618) U/L Albumin 3.1 L (3.5-5.0) g/dL Amylase <30 L (30-110) U/L Microbiology - Last 24 Hours (Table) 04/05/20 18:09 Blood Culture - Preliminary Blood No Growth after 24 hours 04/05/20 18:09 Urine Culture - Preliminary Urine,Voided Thrombosis Risk Factor Assmnt - Choose All That Apply Any of the Below Risk Factors Present?: No Each Risk Factor Represents 2 Points: Age 61-74 years Other congenital or acquired thrombophilia - If yes, enter type in comment: No Thrombosis Risk Factor Assessment Total Risk Factor Score: 2 Thrombosis Risk Factor Assessment Level: Low Risk Assessment and Plan (1) Sepsis Current Visit: Yes Status: Acute Code(s): A41.9 - SEPSIS, UNSPECIFIED ORGANISM SNOMED Code(s): 48516438 (2) Ascending cholangitis Current Visit: Yes Status: Acute Code(s): K83.09 - OTHER CHOLANGITIS SNOMED Code(s): 37062467 (3) Biliary obstruction Current Visit: Yes Status: Acute Code(s): K83.1 - OBSTRUCTION OF BILE DUCT SNOMED Code(s): 132843409 (4) Leukocytosis (leucocytosis) Current Visit: Yes Status: Acute Code(s): D72.829 - ELEVATED WHITE BLOOD CELL COUNT, UNSPECIFIED SNOMED Code(s): 128242504 (5) Normocytic anemia Current Visit: Yes Status: Acute Code(s): D64.9 - ANEMIA, UNSPECIFIED SNOMED Code(s): 583786045 (6) Thrombocytopenia Current Visit: Yes Status: Acute Code(s): D69.6 - THROMBOCYTOPENIA, UNSPECIFIED SNOMED Code(s): 256349272 Plan: 1. Sepsis due to ascending cholangitis. Secondary to biliary obstruction. Pt with history of ERCP approx 3 years ago. GI consulted. NPO. IV fluids and zofran prn. Start zosyn. Follow blood cultures 2. Anemia, thrombocytopenia. Hematology consulted for further evaluation. Monitor labs 3. HTN. Continue lisinopril 4. Depression. Continue paxil
[2020-04-07 03:17] LABS: % Iron Saturation 4.76 (12.00-45.00); Ferritin 3088.1 ng/mL (10.0-291.0); Folate, Serum 11.5 ng/mL
[2020-04-07] MEDS: SODIUM CHLORIDE 0.9% 1,000 ML IV SCH ×3 (05:57→23:32)
[2020-04-07 06:33] LABS: Anisocytosis Slight; HGB 7.8 gm/dL (11.4-16.0); Hypochromasia Slight; MCH 28.4 pg (25.0-35.0); MCHC 31.4 g/dL (31.0-37.0); MCV 90.7 fL (80.0-100.0); Mean Platelet Volume 11.2; RBC 2.75 m/uL (3.80-5.40); Reticulocyte % 3.7 % (0.5-2.0); WBC 8.5 k/uL (3.8-10.6)
[2020-04-07 06:37] LABS: Platelet Count 29 k/uL (150-450)
[2020-04-07 06:40] LABS: INR 1.1 (<1.2); Partial Thromboplastin Time 24.4 sec (22.0-30.0); Prothrombin Time 11.3 sec (9.0-12.0)
[2020-04-07 07:20] LABS: Albumin 2.6 g/dL (3.5-5.0); Calcium 7.7 mg/dL (8.4-10.2); Potassium 2.9 mmol/L (3.5-5.1); Total Protein 5.4 g/dL (6.3-8.2)
[2020-04-07 07:26] LABS: Band Neutrophils % 10 %; Eosinophils # (M) 0.17 k/uL (0-0.7); Lymphocytes # (M) 0.85 k/uL (1.0-4.8); Monocytes # (M) 0.43 k/uL (0-1.0); Neutrophils % (M) 72 %
[2020-04-07 07:27] LABS: Anisocytosis (M) Present; Blast Cells # (M) 0.09 k/uL (0); Nucleated Red Blood Cells 0 /100 WBC (0-0); Total Cells Counted 200
[2020-04-07] MEDS: PARoxetine 20 MG TAB PO SCH (09:31)
[2020-04-07] MEDS: lisinopriL 10 MG TAB PO SCH (09:31)
[2020-04-07] MEDS: PIPERACILLIN-TAZOBACTAM 3.375 GM in SODIUM CHLORIDE 0.9% 100 ML IVPB SCH ×3 (09:31→23:31)
[2020-04-07 11:51] LABS: Erythrocyte Sedimentation Rate 127 mm/hr (0-20)
--- NOTE | 2020-04-07 12:27 | PN ---
PROGRESS NOTE DATE OF SERVICE: April 07, 2020 HISTORY: Patient is a 69-year-old pleasant white female admitted to the hospital with ascending cholangitis and obstructive jaundice. She has prior history of choledocholithiasis. She underwent an ERCP yesterday that showed significantly dilated common bile duct with large amount of sludge and stones in the CBD and mild sphincter stenosis. She underwent balloon extraction with large amount of sludge that was extracted with small stones and subsequently CBD plastic stent was placed for adequate biliary drainage. She is feeling much better today. Abdominal pain has resolved. Nausea, vomiting has improved. No fever, chills, or night sweats. PHYSICAL EXAMINATION: Appears comfortable. VITAL SIGNS: Stable blood pressure 109/63, pulse rate 86, temperature 97.7. HEENT examination unremarkable. Conjunctivae pink. Sclerae icteric. Oral cavity no lesions. Neck no JVD. No lymph node enlargement. CHEST was clear to auscultation. HEART: Regular rate and rhythm. ABDOMEN: Soft. There was very minimal tenderness in the epigastric area. Bowel sounds are positive. No organomegaly. EXTREMITIES: No pedal edema. SKIN: No rashes. NEURO: She is alert and oriented x3. No focal deficits. LABS: From today WBC 8.5, hemoglobin 7.8, platelets 29,000. Sodium 136, potassium 2.9, BUN and creatinine are 22 and 0.9 respectively. T-bilirubin is down to 12. AST and ALT are 130 and 137 respectively. Alkaline phosphatase is 235. IMPRESSION: 1. Obstructive jaundice with ascending cholangitis status post ERCP with CBD stone and sludge removal followed by CBD stent placement. ERCP revealed significant dilation of the CBD with narrowing of biliary sphincterotomy, status post CBD stent placement yesterday for adequate drainage of the bile. Patient on broad-spectrum antibiotics, doing well. Bilirubin is improving. 2. Thrombocytopenia of unclear etiology. Hematology has been consulted. RECOMMENDATIONS: 1. Continue with broad-spectrum antibiotics. 2. Advance diet as tolerated. 3. Repeat labs in the morning. 4. Await hematology recommendations. 5. We will follow with you closely. Thank you for this consultation. MMODL / IJN: [id number] /
[2020-04-07 12:57] LABS: Free Kappa Lt Chain Qnt, Serum 2.25 mg/dL (0.33-1.94)
[2020-04-07] MEDS: POTASSIUM CHLORIDE ER 20 MEQ TAB.ER PO SCH ×2 (22:36→23:27)
[2020-04-08] MEDS: POTASSIUM CHLORIDE ER 20 MEQ TAB.ER PO SCH (00:30)
[2020-04-08] MEDS: SODIUM CHLORIDE 0.9% 1,000 ML IV SCH ×3 (06:12→18:46)
[2020-04-08 07:39] LABS: Anisocytosis Slight; HGB 7.4 gm/dL (11.4-16.0); Hypochromasia Moderate; MCH 29.3 pg (25.0-35.0); MCV 91.4 fL (80.0-100.0); Mean Platelet Volume 11.1; RBC 2.51 m/uL (3.80-5.40); RDW 17.9 % (11.5-15.5); WBC 9.7 k/uL (3.8-10.6)
[2020-04-08 07:44] LABS: ALT 94 U/L (4-34); AST 63 U/L (14-36); African American GFR (CKD) >90 (>60 ml/min/1.73 sqM); Albumin 2.5 g/dL (3.5-5.0); Alkaline Phosphatase 194 U/L (38-126); Anion Gap 4 mmol/L; Blood Urea Nitrogen 8 mg/dL (7-17); Calcium 7.5 mg/dL (8.4-10.2); Carbon Dioxide 23 mmol/L (22-30); Chloride 111 mmol/L (98-107); Glucose 101 mg/dL (74-99); Non-African American GFR(CKD) 89 (>60 ml/min/1.73 sqM); Potassium 3.4 mmol/L (3.5-5.1); Sodium 138 mmol/L (137-145); Total Bilirubin 5.7 mg/dL (0.2-1.3); Total Protein 5.3 g/dL (6.3-8.2)
[2020-04-08] MEDS ORDERED: LOPERAMIDE 2 MG CAP PO PRN (08:46)
[2020-04-08] MEDS: lisinopriL 10 MG TAB PO SCH (08:53)
[2020-04-08] MEDS: PIPERACILLIN-TAZOBACTAM 3.375 GM in SODIUM CHLORIDE 0.9% 100 ML IVPB SCH ×3 (08:54→23:11)
[2020-04-08] MEDS: PARoxetine 20 MG TAB PO SCH (08:54)
--- NOTE | 2020-04-08 09:49 | PN ---
PROGRESS NOTE DATE OF SERVICE: 04/08/2020 Patient is a 69-year-old pleasant white female admitted to the hospital with abdominal pain, jaundice, and fever/possible ascending cholangitis. She underwent an ERCP with CBD stone and sludge removal and CBD stent placement 2 days ago. She remains on broad- spectrum antibiotics. She is doing much better. Abdominal pain has resolved. No nausea, no vomiting. No fever, chills, night sweats. Remains on broad-spectrum antibiotics. PHYSICAL EXAMINATION: Appears comfortable. No apparent distress. VITAL SIGNS: Stable. Blood pressure 158/69, pulse rate 78, temperature 97.9. HEENT: Examination unremarkable. Conjunctivae are pink. Sclerae anicteric. Oral cavity no lesions. CHEST: Clear to auscultation. HEART: Regular rate and rhythm. ABDOMEN: Soft. Bowel sounds are positive. No organomegaly. Minimal tenderness in the epigastric area. Rest of the abdomen is benign. EXTREMITIES: No pedal edema. SKIN: No rashes. NEUROLOGIC: Alert and oriented x3. No focal deficits. LABS: From today WBC 9.7, hemoglobin 7.4, platelets are 49,000. T-bilirubin is down to 5.7. AST and ALT are 63 and 94 respectively alkaline phosphatase 194. Blood cultures, gram- negative bacilli. IMPRESSION: 1. Ascending cholangitis with gram-negative bacteremia presently on broad-spectrum antibiotics. Patient doing well. She is status post ERCP which revealed dilated common bile duct with significant amount of stones and sludge with ampullary stenosis, status post balloon extraction followed by CBD stent placement. Bilirubin is improving. Overall, clinically she has significantly improved. 2. Thrombocytopenia, gradually improving. RECOMMENDATIONS: 1. Continue with broad-spectrum antibiotics. 2. Follow LFTs closely. 3. C difficile toxin for diarrhea. 4. Imodium as needed. 5. Advance diet as tolerated. 6. Repeat labs in the morning. 7. Will follow with you closely. Thank you for this consultation. MMODL / IJN: [id number] /
[2020-04-08 09:54] LABS: Band Neutrophils % 7 %; Lymphocytes # (M) 1.07 k/uL (1.0-4.8); Metamyelocytes # (M) 0.29 k/uL (0); Metamyelocytes % 3 %; Monocytes # (M) 0.68 k/uL (0-1.0); Myelocytes # (M) 0.29 k/uL (0); Myelocytes % 3 %; Neutrophils % (M) 70 %; Nucleated Red Blood Cells 0 /100 WBC (0-0); Total Cells Counted 200
[2020-04-08 09:55] LABS: Platelet Count 40 k/uL (150-450)
--- NOTE | 2020-04-09 00:34 | P.PN ---
Subjective Progress Note Date: 04/07/20 Ariadna Montgomery is a 69 yo F with PMH of previous biliary obstruction, hx ERCP, HTN who presented to the ED complaining of abdominal pain, nausea, vomiting and fever over the past few days. She complains of nausea and poor appetite for over a week but her symptoms progressed in the past few days. On presentation she was febrile and tachycardic, bilirubin [address] abd/pelvis with dilated biliary tree suspicious for obstruction. 1% Blast cells were noted on blood count along with thrombocytopenia. 04/07/2020 Patient is currently resting in the bed comfortably. No complaints of abdominal discomfort. No chest pain or shortness of breath. Patient underwent ERCP yesterday which showed significantly dilated common bile duct with a large amount of sludge and stones in the CBD and mild sphincter stenosis. Patient underwent balloon extraction with large amount of sludge that was extracted with small stones and subsequently CBD plastic stent was placed for adequate biliary drainage. No fever no chills. Currently being continued on antibiotics in the form of Zosyn. Cultures have been negative. GI is following. Hemoglobin level is 7.8 and platelets 29 today. Blast cells with neutrophilic predominance likely due to infection/sepsis. Hematology is following. All other review of systems negative except as above. Laboratory data reviewed. Current medications reviewed. Objective - Vital Signs Vital signs: Vital Signs Temp 98.2 F 04/07/20 12:00 Pulse 97 04/07/20 12:00 Resp 20 04/07/20 12:00 BP 116/60 04/07/20 12:00 Pulse Ox 99 04/07/20 12:00 Intake & Output 04/06/20 04/07/20 04/07/20 18:59 06:59 18:59 Intake Total 936 960 Output Total 400 Balance 936 560 Weight 59.6 kg Intake: IV 300 Oral 300 960 Blood Product 336 Platelet Pheresis Pas 336 Psoralen Unit [id number] Output: Urine 400 Other: # Voids 2 1 - Exam PHYSICAL EXAMINATION: Patient is lying in the bed comfortably, no acute distress, awake alert and oriented.. HEENT: Normocephalic. Neck is supple. Pupils reactive. icterus + and yellowsh dicoloration of skin. Nostrils clear. Oral cavity is moist. Ears reveal no drainage. Neck reveals no JVD, carotid bruits, or thyromegaly. CHEST EXAMINATION: Trachea is central. Symmetrical expansion. Lung barajas clear to auscultation and percussion. CARDIAC: Normal S1, S2 with no gallops. No murmurs ABDOMEN: Soft. Bowel sounds normal. No organomegaly. No abdominal bruits. Extremities: reveal no edema. No clubbing or cyanosis Neurologically awake, alert, oriented x3 with well-coordinated movements. No focal deficits noted Skin: No rash or skin lesions. Psychiatric: Coperative. Nonsuicidal Musculoskeletal: No joint swelling or deformity. Normal range of motion. - Labs CBC & Chem 7: 04/08/20 06:55 04/08/20 06:55 Labs: Abnormal Lab Results - Last 24 Hours (Table) 04/06/20 04/07/20 04/07/20 Range/Units 08:40 05:54 05:54 RBC 2.75 L (3.80-5.40) m/uL Hgb 7.8 L (11.4-16.0) gm/dL Hct 25.0 L (34.0-46.0) % RDW 18.0 H (11.5-15.5) % Plt Count 29 L (150-450) k/uL Blast Cells % 1 H* % Lymphocytes # (Manual) 0.85 L (1.0-4.8) k/uL Blast Cells # (Man) 0.09 H (0) k/uL ESR 127 H (0-20) mm/hr Retic Count 3.7 H (0.5-2.0) % Fibrinogen 557 H (200-500) mg/dL Sodium (137-145) mmol/L Potassium (3.5-5.1) mmol/L BUN (7-17) mg/dL Glucose (74-99) mg/dL Calcium (8.4-10.2) mg/dL Iron 10 L (50-170) ug/dL TIBC 210 L (228-460) ug/dL % Saturation 4.76 L (12.00-45.00) Ferritin 3088.1 H (10.0-291.0) ng/mL Total Bilirubin (0.2-1.3) mg/dL AST (14-36) U/L ALT (4-34) U/L Alkaline Phosphatase (38-126) U/L Total Protein (6.3-8.2) g/dL Albumin (3.5-5.0) g/dL Free [place] LC, Quant (0.33-1.94) mg/dL 04/07/20 04/07/20 Range/Units 05:54 05:54 RBC (3.80-5.40) m/uL Hgb (11.4-16.0) gm/dL Hct (34.0-46.0) % RDW (11.5-15.5) % Plt Count (150-450) k/uL Blast Cells % % Lymphocytes # (Manual) (1.0-4.8) k/uL Blast Cells # (Man) (0) k/uL ESR (0-20) mm/hr Retic Count (0.5-2.0) % Fibrinogen (200-500) mg/dL Sodium 136 L (137-145) mmol/L Potassium 2.9 L (3.5-5.1) mmol/L BUN 22 H (7-17) mg/dL Glucose 100 H (74-99) mg/dL Calcium 7.7 L (8.4-10.2) mg/dL Iron (50-170) ug/dL TIBC (228-460) ug/dL % Saturation (12.00-45.00) Ferritin (10.0-291.0) ng/mL Total Bilirubin 12.0 H (0.2-1.3) mg/dL AST 130 H (14-36) U/L ALT 137 H (4-34) U/L Alkaline Phosphatase 235 H (38-126) U/L Total Protein 5.4 L (6.3-8.2) g/dL Albumin 2.6 L (3.5-5.0) g/dL Free [place] LC, Quant 2.25 H (0.33-1.94) mg/dL Microbiology - Last 24 Hours (Table) 04/05/20 18:09 Urine Culture - Preliminary Urine,Voided Group D Enterococcus 04/05/20 18:09 Blood Culture Gram Stain - Preliminary Blood 04/05/20 18:09 Blood Culture - Final Blood Assessment and Plan Assessment: 1. Sepsis due to ascending cholangitis. Secondary to biliary obstruction. Pt with history of ERCP approx 3 years ago. Patient is status post ERCP with stone removal and sphincteroplasty with stent placement. Continue with antibiotics in the hospital Zosyn. 2. Anaerobic gram-negative bacilli bacteremia and Enterococcus faecalis UTI 2. Anemia, thrombocytopenia. oncology is following 3. HTN. Continue lisinopril 4. Depression. Continue paxil Time with Patient: Greater than 30
--- NOTE | 2020-04-09 00:38 | P.PN ---
Subjective Progress Note Date: 04/08/20 Principal diagnosis: Sepsis due to ascending cholangitis. Ariadna Montgomery is a 69 yo F with PMH of previous biliary obstruction, hx ERCP, HTN who presented to the ED complaining of abdominal pain, nausea, vomiting and fever over the past few days. She complains of nausea and poor appetite for over a week but her symptoms progressed in the past few days. On presentation she was febrile and tachycardic, bilirubin [address] abd/pelvis with dilated biliary tree suspicious for obstruction. 1% Blast cells were noted on blood count along with thrombocytopenia. 04/07/2020 Patient is currently resting in the bed comfortably. No complaints of abdominal discomfort. No chest pain or shortness of breath. Patient underwent ERCP yesterday which showed significantly dilated common bile duct with a large amount of sludge and stones in the CBD and mild sphincter stenosis. Patient underwent balloon extraction with large amount of sludge that was extracted with small stones and subsequently CBD plastic stent was placed for adequate biliary drainage. No fever no chills. Currently being continued on antibiotics in the form of Zosyn. Cultures have been negative. GI is following. Hemoglobin level is 7.8 and platelets 29 today. Blast cells with neutrophilic predominance likely due to infection/sepsis. Hematology is following. 04/08/2020 Patient is currently resting in the bed comfortably. Blood cultures are not finalized yet. Urine culture showed Enterococcus faecalis. Currently on antibiotics in the form of Zosyn. Otherwise laboratory data showed WBC count is 9.7 and hemoglobin 7.4 and platelet count is improving to 40,000 today. Sodium 138 and potassium 3.4 BUN 18 creatinine 0.66 Liver enzymes and alk phos are trending down. Total bilirubin level is 5.7 today. Patient denied any complaints of abdominal pain. Tolerating oral diet slowly. No fever no chills. GI is on board. All other review of systems negative except as above. Laboratory data reviewed. Current medications reviewed. Objective - Vital Signs Vital signs: Vital Signs Temp 98.2 F 04/08/20 16:00 Pulse 89 04/08/20 16:00 Resp 16 04/08/20 16:00 BP 164/70 04/08/20 16:00 Pulse Ox 98 04/08/20 16:00 Intake & Output 04/08/20 04/08/20 04/09/20 06:59 18:59 06:59 Intake Total 960 Balance 960 Weight Intake: Oral 960 Other: # Voids 1 # Bowel Movements 2 - Exam PHYSICAL EXAMINATION: Patient is lying in the bed comfortably, no acute distress, awake alert and oriented.. HEENT: Normocephalic. Neck is supple. Pupils reactive. icterus + and yellowsh dicoloration of skin. Nostrils clear. Oral cavity is moist. Ears reveal no drainage. Neck reveals no JVD, carotid bruits, or thyromegaly. CHEST EXAMINATION: Trachea is central. Symmetrical expansion. Lung barajas clear to auscultation and percussion. CARDIAC: Normal S1, S2 with no gallops. No murmurs ABDOMEN: Soft. Bowel sounds normal. No organomegaly. No abdominal bruits. Extremities: reveal no edema. No clubbing or cyanosis Neurologically awake, alert, oriented x3 with well-coordinated movements. No focal deficits noted Skin: No rash or skin lesions. Psychiatric: Coperative. Nonsuicidal Musculoskeletal: No joint swelling or deformity. Normal range of motion. - Labs CBC & Chem 7: 04/08/20 06:55 04/08/20 06:55 Labs: Abnormal Lab Results - Last 24 Hours (Table) 04/08/20 04/08/20 Range/Units 06:55 06:55 RBC 2.51 L (3.80-5.40) m/uL Hgb 7.4 L (11.4-16.0) gm/dL Hct 23.0 L (34.0-46.0) % RDW 17.9 H (11.5-15.5) % Plt Count 40 L (150-450) k/uL Blast Cells % 1 H* % Metamyelocytes # (Man) 0.29 H (0) k/uL Myelocytes # (Manual) 0.29 H (0) k/uL Blast Cells # (Man) 0.10 H (0) k/uL Potassium 3.4 L (3.5-5.1) mmol/L Chloride 111 H (98-107) mmol/L Glucose 101 H (74-99) mg/dL Calcium 7.5 L (8.4-10.2) mg/dL Total Bilirubin 5.7 H (0.2-1.3) mg/dL AST 63 H (14-36) U/L ALT 94 H (4-34) U/L Alkaline Phosphatase 194 H (38-126) U/L Total Protein 5.3 L (6.3-8.2) g/dL Albumin 2.5 L (3.5-5.0) g/dL Microbiology - Last 24 Hours (Table) 04/05/20 18:09 Urine Culture - Final Urine,Voided Enterococcus faecalis 04/05/20 18:09 Blood Culture Gram Stain - Preliminary Blood Blood Culture - Preliminary Anaerobic Gm Negative Bacilli Assessment and Plan Assessment: 1. Sepsis due to ascending cholangitis. Secondary to biliary obstruction. Pt with history of ERCP approx 3 years ago. Patient is status post ERCP with stone removal and sphincteroplasty with stent placement. Continue with antibiotics -Zosyn. 2. Anaerobic gram-negative bacilli bacteremia and Enterococcus faecalis UTI 2. Anemia, thrombocytopenia. oncology is following 3. HTN. Continue lisinopril 4. Depression. Continue paxil Time with Patient: Greater than 30
[2020-04-09] MEDS: SODIUM CHLORIDE 0.9% 1,000 ML IV SCH ×2 (04:45→17:42)
[2020-04-09] MEDS: PARoxetine 20 MG TAB PO SCH (08:55)
[2020-04-09] MEDS: PIPERACILLIN-TAZOBACTAM 3.375 GM in SODIUM CHLORIDE 0.9% 100 ML IVPB SCH ×2 (08:55→17:42)
[2020-04-09] MEDS: lisinopriL 10 MG TAB PO SCH (08:56)
[2020-04-09 10:24] LABS: Anisocytosis Slight; HCT 24.1 % (34.0-46.0); HGB 7.2 gm/dL (11.4-16.0); Hypochromasia Marked; MCH 28.2 pg (25.0-35.0); MCHC 30.1 g/dL (31.0-37.0); MCV 93.7 fL (80.0-100.0); Mean Platelet Volume 11.1; RBC 2.57 m/uL (3.80-5.40); WBC 15.1 k/uL (3.8-10.6)
[2020-04-09 10:27] LABS: Platelet Count 71 k/uL (150-450)
[2020-04-09 10:30] LABS: ALT 70 U/L (4-34); AST 42 U/L (14-36); African American GFR (CKD) >90 (>60 ml/min/1.73 sqM); Albumin 2.8 g/dL (3.5-5.0); Alkaline Phosphatase 223 U/L (38-126); Anion Gap 6 mmol/L; Blood Urea Nitrogen 3 mg/dL (7-17); Calcium 7.9 mg/dL (8.4-10.2); Carbon Dioxide 25 mmol/L (22-30); Chloride 110 mmol/L (98-107); Glucose 110 mg/dL (74-99); Non-African American GFR(CKD) 89 (>60 ml/min/1.73 sqM); Potassium 3.7 mmol/L (3.5-5.1); Sodium 141 mmol/L (137-145); Total Bilirubin 4.7 mg/dL (0.2-1.3); Total Protein 5.7 g/dL (6.3-8.2)
--- NOTE | 2020-04-09 11:50 | P.PN ---
Subjective Progress Note Date: 04/09/20 This is 69-year-old female with past medical history of previous biliary obstruction, ERCP, hypertension and multiple other medical issues presented to the hospital with sepsis secondary to ascending cholangitis related to biliary obstruction. Status post ERCP with stone removal and spincteroplasty with stent placement. Tolerated procedure well. Hemoglobin 7.4, neutrophil 1, platelets of 240. Potassium 3.4, LFTs significantly improving with T bili down to 5.7. T-max 99, normal WBC .Continues on IV fluids and Zosyn. Urine cultures reporting enterococcus faecalis and blood cultures reporting gram-negative bacilli. Reports she consumed gil for breakfast and now has upset stomach with diarrhea. Objective - Vital Signs Vital signs: Vital Signs Temp 98.2 F 04/09/20 03:34 Pulse 78 04/09/20 03:34 Resp 19 04/09/20 03:34 BP 165/70 04/09/20 03:34 Pulse Ox 99 04/09/20 03:34 Intake & Output 04/08/20 04/09/20 04/09/20 18:59 06:59 18:59 Intake Total 960 Balance 960 Weight 57.9 kg Intake: Oral 960 Other: # Voids 1 1 # Bowel Movements 2 - Exam PHYSICAL EXAM: VITAL SIGNS: As above GENERAL: Sitting up in bed, no acute distress . HEENT: Normocephalic. Pupils reactive. Improving Icterus and mild jaundice. Oral mucosa moist NECK: No JVD. No thyroid enlargement. No LNs CARDIOVASCULAR: S1, S2 regular.. No murmur RESPIRATION: Breath sounds diminished in the bases. No rhonchi or crackles. No bronchial breathing. ABDOMEN: Soft, distended, mid epigastric tenderness . No guarding. Bowel sounds heard. LEGS: No edema. no swelling PSYCHIATRY: Alert and oriented X3, mood and affect normal. NERVOUS SYSTEM: Cranial N 2-12 grossly normal. Moves all 4 limbs. No focal deficits. Strength and sensation grossly intact.. Skin: Warm and dry, no rash. Microbiology 04/05/20 18:09 Urine,Voided Urine Culture - Final Enterococcus faecalis 04/05/20 18:09 Blood Blood Culture Gram Stain - Preliminary 04/05/20 18:09 Blood Blood Culture - Preliminary Anaerobic Gm Negative Bacilli 04/05/20 18:09 Blood Blood Culture - Final - Labs CBC & Chem 7: 04/09/20 09:42 04/09/20 09:42 Labs: Abnormal Lab Results - Last 24 Hours (Table) 04/08/20 Range/Units 06:55 Plt Count 40 L (150-450) k/uL Blast Cells % 1 H* % Metamyelocytes # (Man) 0.29 H (0) k/uL Myelocytes # (Manual) 0.29 H (0) k/uL Blast Cells # (Man) 0.10 H (0) k/uL Microbiology - Last 24 Hours (Table) 04/05/20 18:09 Urine Culture - Final Urine,Voided Enterococcus faecalis 04/05/20 18:09 Blood Culture Gram Stain - Preliminary Blood Blood Culture - Preliminary Anaerobic Gm Negative Bacilli Assessment and Plan Assessment: 1. Sepsis due to ascending cholangitis. Secondary to biliary obstruction,status post ERCP with stone removal and sphincteroplasty with stent placement. 2. Anaerobic gram-negative bacilli bacteremia and acute UTI with Enterococcus faecalis. 3. History of ERCP 4. Anemia, thrombocytopenia. oncology following 5. HTN 6. Depression Plan: Continue on current medication regime ,monitoring and symptomatic treatment. Maintain IV fluid hydration, IV antibiotics of Zosyn. Continue following cultures. Repeat blood culture ordered. Close monitoring of LFTs. Discharge planning in progress for tomorrow. The impression and plan of care has been dictated as directed. : I performed a history and examination of this patient, discussed the same with the dictator. I agree with the dictator's note ,documented as a scribe. Any additional findings or plans will be noted.
[2020-04-09] MEDS: ONDANSETRON 4 MG/2 ML VIAL IVP PRN (11:51)
--- NOTE | 2020-04-09 12:46 | P.PN ---
Subjective Progress Note Date: 04/09/20 Principal diagnosis: Jaundice, ascending cholangitis Same pleasant 69-year-old white female who was admitted to the hospital for abdominal pain, jaundice, and fever with suspected ascending cholangitis. She underwent an ERCP with CBD stone and sludge removal and CBD stent placement 3 days ago. She remains on broad-spectrum antibiotics. She is doing much better. Pain has improved. However she does state that she still has some abdominal tenderness with palpation. She denies any vomiting, has some mild nausea. No fever or chills. Objective - Vital Signs Vital signs: Vital Signs Temp 98.2 F 04/09/20 03:34 Pulse 79 04/09/20 08:00 Resp 19 04/09/20 08:00 BP 165/70 04/09/20 08:00 Pulse Ox 99 04/09/20 08:00 Intake & Output 04/08/20 04/09/20 04/09/20 18:59 06:59 18:59 Intake Total 960 Balance 960 Weight 57.9 kg Intake: Oral 960 Other: # Voids 1 1 1 # Bowel Movements 2 - Exam General appearance: The patient is alert, oriented, in no acute distress. HET: Head is normocephalic and atraumatic. Conjunctiva pink. Sclera icteric. Neck: Supple without lymphadenopathy. Abdomen: Soft, nontender, nondistended with bowel sounds. No guarding or rigidity. Extremities: Skin is jaundiced, but improved. No pedal edema Neurological: No focal deficits. Alert and oriented 3. - Labs CBC & Chem 7: 04/09/20 09:42 04/09/20 09:42 Labs: Abnormal Lab Results - Last 24 Hours (Table) 04/07/20 04/09/20 04/09/20 Range/Units 05:54 09:42 09:42 WBC 15.1 H (3.8-10.6) k/uL RBC 2.57 L (3.80-5.40) m/uL Hgb 7.2 L (11.4-16.0) gm/dL Hct 24.1 L (34.0-46.0) % MCHC 30.1 L (31.0-37.0) g/dL RDW 18.0 H (11.5-15.5) % Plt Count 71 L D (150-450) k/uL Chloride 110 H (98-107) mmol/L BUN 3 L (7-17) mg/dL Glucose 110 H (74-99) mg/dL Calcium 7.9 L (8.4-10.2) mg/dL Total Bilirubin 4.7 H (0.2-1.3) mg/dL AST 42 H (14-36) U/L ALT 70 H (4-34) U/L Alkaline Phosphatase 223 H (38-126) U/L Total Protein 5.7 L (6.3-8.2) g/dL Total Protein (PEP) 5.0 L (6.2-8.2) g/dL Albumin 2.8 L (3.5-5.0) g/dL Microbiology - Last 24 Hours (Table) 04/05/20 18:09 Urine Culture - Final Urine,Voided Enterococcus faecalis 04/05/20 18:09 Blood Culture Gram Stain - Preliminary Blood Blood Culture - Preliminary Anaerobic Gm Negative Bacilli Assessment and Plan (1) Ascending cholangitis Narrative/Plan: Ascending cholangitis with gram-negative bacteremia breath. Broad-spectrum antibiotics. She is status post ERCP which revealed dilated common bile duct was significant amount of stones and sludge with ampullary stenosis, status post balloon extraction followed by CBD stent placement. Bilirubin is improving. Overall clinically has had significant improvement. Current Visit: Yes Status: Acute Code(s): K83.09 - OTHER CHOLANGITIS SNOMED Code(s): 34442935 (2) Thrombocytopenia Narrative/Plan: Gradually improving. Hematology is on consult for further workup. Current Visit: Yes Status: Acute Code(s): D69.6 - THROMBOCYTOPENIA, UNSPECIFIED SNOMED Code(s): 949425240 Plan: 1. Continue with broad-spectrum antibiotics 2. Follow LFTs closely 3. C. difficile toxin ordered for new onset diarrhea 4. Imodium as needed 5. She will need repeat ERCP extension of biliary sphincterotomy in the outpatient setting once platelet counts normalize The impression and plan of care has been dictated as directed. I performed a history and examination of this patient, discussed the same with the dictator. I agree with the dictator's note ,documented as a scribe. Any additional findings or plans will be noted.
[2020-04-09 14:20] LABS: Immunoglobulin M 90.4 mg/dL (40.0-280.0)
[2020-04-09 14:28] LABS: Albumin 2.61 g/dL (3.80-4.90)
--- NOTE | 2020-04-09 16:34 | P.PN ---
Subjective Progress Note Date: 04/09/20 Principal diagnosis: BIliary Obstruction Platelet count and liver function is improving. Objective - Vital Signs Vital signs: Vital Signs Temp 98.2 F 04/09/20 03:34 Pulse 77 04/09/20 12:00 Resp 19 04/09/20 12:00 BP 163/77 04/09/20 12:00 Pulse Ox 99 04/09/20 12:00 Intake & Output 04/08/20 04/09/20 04/09/20 18:59 06:59 18:59 Intake Total 960 236 Balance 960 236 Weight 57.9 kg Intake: Oral 960 236 Other: # Voids 1 1 1 # Bowel Movements 2 - Exam - Constitutional General appearance: cooperative, no acute distress - EENT Eyes: PERRLA, dentition normal ENT: hard of hearing, NA/AT, normal oropharynx - Neck supple - Respiratory Respiratory: bilateral: CTA - Cardiovascular Tachy Rhythm: regular leg Peripheral Edema: bilateral: Trace - Gastrointestinal General gastrointestinal: decreased bowel sounds, distended, hepatomegaly - Integumentary Integumentary: jaundiced - Neurologic non-focal - Musculoskeletal Musculoskeletal: generalized weakness, strength equal bilaterally - Psychiatric Psychiatric: A&O x's 3, appropriate affect - Labs CBC & Chem 7: 04/09/20 09:42 04/09/20 09:42 Labs: Abnormal Lab Results - Last 24 Hours (Table) 04/07/20 04/09/20 04/09/20 Range/Units 05:54 09:42 09:42 WBC 15.1 H (3.8-10.6) k/uL RBC 2.57 L (3.80-5.40) m/uL Hgb 7.2 L (11.4-16.0) gm/dL Hct 24.1 L (34.0-46.0) % MCHC 30.1 L (31.0-37.0) g/dL RDW 18.0 H (11.5-15.5) % Plt Count 71 L D (150-450) k/uL Chloride 110 H (98-107) mmol/L BUN 3 L (7-17) mg/dL Glucose 110 H (74-99) mg/dL Calcium 7.9 L (8.4-10.2) mg/dL Total Bilirubin 4.7 H (0.2-1.3) mg/dL AST 42 H (14-36) U/L ALT 70 H (4-34) U/L Alkaline Phosphatase 223 H (38-126) U/L Total Protein 5.7 L (6.3-8.2) g/dL Total Protein (PEP) 5.0 L (6.2-8.2) g/dL Albumin 2.8 L (3.5-5.0) g/dL Albumin (PEP) 2.61 L (3.80-4.90) g/dL Rcjzj-2-Wgntlblfy 0.47 H (0.10-0.40) g/dL Nsvet-7-Evmwxnjyk 0.56 L (0.60-1.00) g/dL Beta Globulins 0.57 L (0.60-1.30) g/dL Microbiology - Last 24 Hours (Table) 04/05/20 18:09 Blood Culture Gram Stain - Final Blood Blood Culture - Final Anaerobic Gm Negative Bacilli 04/05/20 18:09 Urine Culture - Final Urine,Voided Enterococcus faecalis Assessment and Plan (1) Normocytic anemia Current Visit: Yes Status: Acute Code(s): D64.9 - ANEMIA, UNSPECIFIED SNOMED Code(s): 991595368 (2) Thrombocytopenia Current Visit: Yes Status: Acute Code(s): D69.6 - THROMBOCYTOPENIA, UNSPECIFIED SNOMED Code(s): 525789942 (3) Leukocytosis (leucocytosis) Current Visit: Yes Status: Acute Code(s): D72.829 - ELEVATED WHITE BLOOD CELL COUNT, UNSPECIFIED SNOMED Code(s): 143871540 Plan: Assessment and Recommendations: Common Bile Duct Obstruction secondary to multiple stones: -Status Post ERCP with stone removal and Stent with GI, Dr. Calvo Normocytic Anemia:Stable - Further work-up in place - Colonoscopy and EGD Neg in 12/2019 - Other differentials excluded, likely secondary to underlying sepsis/biliary obstruction SIRS/SEPSIS:Improved - Per Primary team Increased LFTs and Bili: Improved - Secondary to above Thrombocytopenia: Improved - Recheck Coags: PT, PTT, INR and Fibrinogen (in picture of fever, declining liver function) Leukocytosis: - Likely secondary to infectious inflammatory - Mainly Neutrophilia - Mild increase today, however all other significant assessment features improved. Overall continues to improve, we will assist in monitoring continued recovery and return of abnormalities in labs, defer all other issues to primary and other specialties.
[2020-04-09] MEDS: BISMUTH SUBSALICYLATE 4,192 MG/240 ML BOTTLE PO PRN (20:14)
[2020-04-10] MEDS: SODIUM CHLORIDE 0.9% 1,000 ML IV SCH ×4 (00:34→23:57)
[2020-04-10] MEDS: PIPERACILLIN-TAZOBACTAM 3.375 GM in SODIUM CHLORIDE 0.9% 100 ML IVPB SCH ×4 (00:45→23:57)
[2020-04-10] MEDS: PARoxetine 20 MG TAB PO SCH (08:12)
[2020-04-10] MEDS: lisinopriL 10 MG TAB PO SCH (08:12)
[2020-04-10 08:56] LABS: ALT 65 U/L (4-34); AST 45 U/L (14-36); African American GFR (CKD) >90 (>60 ml/min/1.73 sqM); Albumin 3.2 g/dL (3.5-5.0); Alkaline Phosphatase 279 U/L (38-126); Anion Gap 6 mmol/L; Blood Urea Nitrogen 3 mg/dL (7-17); Carbon Dioxide 23 mmol/L (22-30); Chloride 110 mmol/L (98-107); Glucose 85 mg/dL (74-99); Non-African American GFR(CKD) >90 (>60 ml/min/1.73 sqM); Potassium 3.4 mmol/L (3.5-5.1); Sodium 139 mmol/L (137-145); Total Bilirubin 4.4 mg/dL (0.2-1.3); Total Protein 6.4 g/dL (6.3-8.2)
[2020-04-10] MEDS: ONDANSETRON 4 MG/2 ML VIAL IVP PRN ×2 (11:39→19:58)
--- NOTE | 2020-04-10 18:22 | P.PN ---
Subjective Progress Note Date: 04/10/20 Principal diagnosis: CBD stone and ascending cholangitis This is 69-year-old female with past medical history of previous biliary obstruction, ERCP, hypertension and multiple other medical issues presented to the hospital with sepsis secondary to ascending cholangitis related to biliary obstruction. Status post ERCP with stone removal and spincteroplasty with stent placement. Her blood culture was positive for E fecalis and she remains on zosyn. She continues to complain of abdominal pain improved from yesterday. Afebrile over last 24 hours, Hgb stable at 7.2 and bilirbuin trending down. Objective - Vital Signs Vital signs: Vital Signs Temp 98.2 F 04/10/20 15:30 Pulse 77 04/10/20 15:30 Resp 18 04/10/20 15:30 BP 185/74 04/10/20 15:30 Pulse Ox 99 04/10/20 15:30 Intake & Output 04/09/20 04/10/20 04/10/20 18:59 06:59 18:59 Intake Total 458 2026 Balance 458 2026 Weight 64 kg Intake: Intake, IV Titration 1010 Amount Piperacillin-Tazobactam 3 100 .375 gm In Sodium Chloride 0.9% 100 ml @ 25 mls/hr IVPB Q8HR [facility] Rx# :[id number] Sodium Chloride 0.9% 1, 910 000 ml @ 130 mls/hr IV . Q7H42M [facility] Rx#:[id number] Oral 458 1017 Other: # Voids 3 1 1 - Exam General: well nourished, well developed, NAD. Vitals reviewed Lungs: normal respiratory effort, no wheezes or rales CV: Regular rate and rhythm, no murmur. Peripheral pulses 2+ Abdomen: soft, nondistended, no organomegaly. Tenderness to palpation RUQ, epigastric Skin: warm and dry. Improving jaundice. - Labs CBC & Chem 7: 04/09/20 09:42 04/10/20 07:08 Labs: Abnormal Lab Results - Last 24 Hours (Table) 04/10/20 Range/Units 07:08 Potassium 3.4 L (3.5-5.1) mmol/L Chloride 110 H (98-107) mmol/L BUN 3 L (7-17) mg/dL Calcium 8.0 L (8.4-10.2) mg/dL Total Bilirubin 4.4 H (0.2-1.3) mg/dL AST 45 H (14-36) U/L ALT 65 H (4-34) U/L Alkaline Phosphatase 279 H (38-126) U/L Albumin 3.2 L (3.5-5.0) g/dL Microbiology - Last 24 Hours (Table) 04/09/20 12:05 Blood Culture - Preliminary Blood No Growth after 24 hours 04/05/20 18:09 Blood Culture Gram Stain - Final Blood Blood Culture - Final Anaerobic Gm Negative Bacilli Assessment and Plan (1) Sepsis Current Visit: Yes Status: Acute Code(s): A41.9 - SEPSIS, UNSPECIFIED ORGANISM SNOMED Code(s): 92956839 (2) Ascending cholangitis Current Visit: Yes Status: Acute Code(s): K83.09 - OTHER CHOLANGITIS SNOMED Code(s): 08951293 (3) Biliary obstruction Current Visit: Yes Status: Acute Code(s): K83.1 - OBSTRUCTION OF BILE DUCT SNOMED Code(s): 720693841 (4) Leukocytosis (leucocytosis) Current Visit: Yes Status: Acute Code(s): D72.829 - ELEVATED WHITE BLOOD CELL COUNT, UNSPECIFIED SNOMED Code(s): 426488320 (5) Normocytic anemia Current Visit: Yes Status: Acute Code(s): D64.9 - ANEMIA, UNSPECIFIED SNOMED Code(s): 096211854 (6) Thrombocytopenia Current Visit: Yes Status: Acute Code(s): D69.6 - THROMBOCYTOPENIA, UNSPECIFIED SNOMED Code(s): 520077373
[2020-04-10] MEDS: BISMUTH SUBSALICYLATE 4,192 MG/240 ML BOTTLE PO PRN (19:58)
[2020-04-11 07:32] LABS: Anisocytosis Slight; HCT 23.5 % (34.0-46.0); HGB 7.4 gm/dL (11.4-16.0); Hypochromasia Moderate; MCH 29.1 pg (25.0-35.0); MCHC 31.7 g/dL (31.0-37.0); MCV 91.9 fL (80.0-100.0); Mean Platelet Volume 10.1; Platelet Count 105 k/uL (150-450); RBC 2.55 m/uL (3.80-5.40); RDW 17.9 % (11.5-15.5); WBC 14.4 k/uL (3.8-10.6)
[2020-04-11 07:46] LABS: Potassium 3.2 mmol/L (3.5-5.1)
[2020-04-11 07:47] LABS: ALT 52 U/L (4-34); AST 36 U/L (14-36); African American GFR (CKD) >90 (>60 ml/min/1.73 sqM); Alkaline Phosphatase 280 U/L (38-126); Anion Gap 4 mmol/L; Blood Urea Nitrogen 5 mg/dL (7-17); Calcium 7.9 mg/dL (8.4-10.2); Carbon Dioxide 29 mmol/L (22-30); Chloride 106 mmol/L (98-107); Glucose 105 mg/dL (74-99); Non-African American GFR(CKD) 88 (>60 ml/min/1.73 sqM); Sodium 139 mmol/L (137-145); Total Bilirubin 3.9 mg/dL (0.2-1.3); Total Protein 5.9 g/dL (6.3-8.2)
[2020-04-11] MEDS: lisinopriL 10 MG TAB PO SCH (08:52)
[2020-04-11] MEDS: PARoxetine 20 MG TAB PO SCH (08:52)
[2020-04-11] MEDS: BISMUTH SUBSALICYLATE 4,192 MG/240 ML BOTTLE PO PRN (08:53)
[2020-04-11] MEDS: PIPERACILLIN-TAZOBACTAM 3.375 GM in SODIUM CHLORIDE 0.9% 100 ML IVPB SCH ×3 (08:55→22:56)
[2020-04-11 09:35] LABS: Band Neutrophils % 8 %; Blast Cells # (M) 0.14 k/uL (0); Eosinophils # (M) 0.14 k/uL (0-0.7); Lymphocytes # (M) 1.87 k/uL (1.0-4.8); Metamyelocytes # (M) 0.58 k/uL (0); Metamyelocytes % 4 %; Monocytes # (M) 0.72 k/uL (0-1.0); Myelocytes # (M) 0.14 k/uL (0); Myelocytes % 1 %; Neutrophils % (M) 69 %; Nucleated Red Blood Cells 0 /100 WBC (0-0); Total Cells Counted 200
[2020-04-11 09:36] LABS: Poikilocytosis (M) Present; Polychromasia Present
[2020-04-11 09:37] LABS: Toxic Granulation Present
--- NOTE | 2020-04-11 12:21 | P.PN ---
Subjective Progress Note Date: 04/11/20 Principal diagnosis: Jaundice, ascending cholangitis Patient was seen and examined sitting up in bed. Overall she is looking much better. She states she still has some upper abdominal discomfort. She denies any nausea or vomiting. Bowel movements are normal. Blood cultures are pending. She remains on the Zosyn. She has been afebrile with no acute changes through the night. Objective - Vital Signs Vital signs: Vital Signs Temp 98.5 F 04/11/20 11:50 Pulse 75 04/11/20 11:50 Resp 20 04/11/20 11:50 BP 191/75 04/11/20 11:50 Pulse Ox 99 04/11/20 11:50 Intake & Output 04/10/20 04/11/20 04/11/20 18:59 06:59 18:59 Intake Total 2026 850 240 Balance 2026 850 240 Weight 59.3 kg Intake: Intake, IV Titration 1010 850 Amount Piperacillin-Tazobactam 3 100 200 .375 gm In Sodium Chloride 0.9% 100 ml @ 25 mls/hr IVPB Q8HR [facility] Rx# :[id number] Sodium Chloride 0.9% 1, 910 650 000 ml @ 130 mls/hr IV . Q7H42M [facility] Rx#:[id number] Oral 1017 240 Other: Voiding Method Toilet Toilet # Voids 1 # Bowel Movements 1 - Exam General appearance: The patient is alert, oriented, in no acute distress. HET: Head is normocephalic and atraumatic. Conjunctiva pink. Sclera icteric. Neck: Supple without lymphadenopathy. Abdomen: Soft, epigastric tenderness, nondistended with bowel sounds. No guarding or rigidity. Extremities: Skin is jaundiced, but improved. No pedal edema. Neurological: No focal deficits. Alert and oriented 3. - Labs CBC & Chem 7: 04/11/20 07:13 04/11/20 07:13 Labs: Abnormal Lab Results - Last 24 Hours (Table) 04/11/20 04/11/20 Range/Units 07:13 07:13 WBC 14.4 H (3.8-10.6) k/uL RBC 2.55 L (3.80-5.40) m/uL Hgb 7.4 L (11.4-16.0) gm/dL Hct 23.5 L (34.0-46.0) % RDW 17.9 H (11.5-15.5) % Plt Count 105 L (150-450) k/uL Blast Cells % 1 H* % Neutrophils # (Manual) 11.00 H (1.3-7.7) k/uL Metamyelocytes # (Man) 0.58 H (0) k/uL Myelocytes # (Manual) 0.14 H (0) k/uL Blast Cells # (Man) 0.14 H (0) k/uL Potassium 3.2 L (3.5-5.1) mmol/L BUN 5 L (7-17) mg/dL Glucose 105 H (74-99) mg/dL Calcium 7.9 L (8.4-10.2) mg/dL Total Bilirubin 3.9 H (0.2-1.3) mg/dL ALT 52 H (4-34) U/L Alkaline Phosphatase 280 H (38-126) U/L Total Protein 5.9 L (6.3-8.2) g/dL Albumin 3.0 L (3.5-5.0) g/dL Microbiology - Last 24 Hours (Table) 04/09/20 12:05 Blood Culture - Preliminary Blood No Growth after 24 hours Assessment and Plan (1) Ascending cholangitis Narrative/Plan: Ascending cholangitis with gram-negative bacteremia breath. Broad-spectrum antibiotics. She is status post ERCP which revealed dilated common bile duct w as significant amount of stones and sludge with ampullary stenosis, status post balloon extraction followed by CBD stent placement. Bilirubin is improving. Overall clinically has had significant improvement. Current Visit: Yes Status: Acute Code(s): K83.09 - OTHER CHOLANGITIS SNOMED Code(s): 14700652 (2) Thrombocytopenia Narrative/Plan: Gradually improving. Hematology is on consult for further workup. Current Visit: Yes Status: Acute Code(s): D69.6 - THROMBOCYTOPENIA, UNSPECIFIED SNOMED Code(s): 352179963 Plan: 1. Continue with broad-spectrum antibiotics, blood cultures pending 2. Follow LFTs closely 3. C. difficile toxin cancelled due to being formed 4. Imodium as needed 5. She will need repeat ERCP extension of biliary sphincterotomy in the outpatient setting once platelet counts normalize The patient may be discharged home from a gastroenterology standpoint when medically stable. The impression and plan of care has been dictated as directed. I performed a history and examination of this patient, discussed the same with the dictator. I agree with the dictator's note ,documented as a scribe. Any additional findings or plans will be noted.
[2020-04-11] MEDS: POTASSIUM CHLORIDE ER 20 MEQ TAB.ER PO SCH ×2 (13:27→15:01)
[2020-04-11 14:21] VITALS: BMI 22.4
--- NOTE | 2020-04-11 22:14 | P.PN ---
Subjective Progress Note Date: 04/11/20 Principal diagnosis: CBD stone and ascending cholangitis This is 69-year-old female with past medical history of previous biliary obstruction, ERCP, hypertension and multiple other medical issues presented to the hospital with sepsis secondary to ascending cholangitis related to biliary obstruction. Status post ERCP with stone removal and spincteroplasty with stent placement. Her blood culture was positive for E fecalis and she remains on zosyn. 04/11: She is feeling much improved today, appetite better and less abdominal pain. Bilirubin continues to trend down. Hgb rising at 7.4 today Objective - Vital Signs Vital signs: Vital Signs Temp 98.6 F 04/11/20 19:56 Pulse 77 04/11/20 19:56 Resp 19 04/11/20 19:56 BP 180/81 04/11/20 19:56 Pulse Ox 98 04/11/20 19:56 Intake & Output 04/11/20 04/11/20 04/12/20 06:59 18:59 06:59 Intake Total 850 660 Balance 850 660 Weight 59.3 kg 59.3 kg Intake: Intake, IV Titration 850 Amount Piperacillin-Tazobactam 3 200 .375 gm In Sodium Chloride 0.9% 100 ml @ 25 mls/hr IVPB Q8HR [facility] Rx# :[id number] Sodium Chloride 0.9% 1, 650 000 ml @ 130 mls/hr IV . Q7H42M [facility] Rx#:[id number] Oral 660 Other: Voiding Method Toilet Toilet # Voids 1 # Bowel Movements 1 - Exam General: well nourished, well developed, NAD. Vitals reviewed Lungs: normal respiratory effort, no wheezes or rales CV: Regular rate and rhythm, no murmur. Peripheral pulses 2+ Abdomen: soft, nondistended, no organomegaly. Tenderness to palpation RUQ, epigastric improved from previous Skin: warm and dry. Improving jaundice. - Labs CBC & Chem 7: 04/11/20 07:13 04/11/20 07:13 Labs: Abnormal Lab Results - Last 24 Hours (Table) 04/11/20 04/11/20 Range/Units 07:13 07:13 WBC 14.4 H (3.8-10.6) k/uL RBC 2.55 L (3.80-5.40) m/uL Hgb 7.4 L (11.4-16.0) gm/dL Hct 23.5 L (34.0-46.0) % RDW 17.9 H (11.5-15.5) % Plt Count 105 L (150-450) k/uL Blast Cells % 1 H* % Neutrophils # (Manual) 11.00 H (1.3-7.7) k/uL Metamyelocytes # (Man) 0.58 H (0) k/uL Myelocytes # (Manual) 0.14 H (0) k/uL Blast Cells # (Man) 0.14 H (0) k/uL Potassium 3.2 L (3.5-5.1) mmol/L BUN 5 L (7-17) mg/dL Glucose 105 H (74-99) mg/dL Calcium 7.9 L (8.4-10.2) mg/dL Total Bilirubin 3.9 H (0.2-1.3) mg/dL ALT 52 H (4-34) U/L Alkaline Phosphatase 280 H (38-126) U/L Total Protein 5.9 L (6.3-8.2) g/dL Albumin 3.0 L (3.5-5.0) g/dL Microbiology - Last 24 Hours (Table) 04/09/20 12:05 Blood Culture - Preliminary Blood No Growth after 48 hours Assessment and Plan (1) Sepsis Current Visit: Yes Status: Acute Code(s): A41.9 - SEPSIS, UNSPECIFIED ORGANISM SNOMED Code(s): 74297905 (2) Ascending cholangitis Current Visit: Yes Status: Acute Code(s): K83.09 - OTHER CHOLANGITIS SNOMED Code(s): 99348403 (3) Biliary obstruction Current Visit: Yes Status: Acute Code(s): K83.1 - OBSTRUCTION OF BILE DUCT SNOMED Code(s): 995811579 (4) Leukocytosis (leucocytosis) Current Visit: Yes Status: Acute Code(s): D72.829 - ELEVATED WHITE BLOOD CELL COUNT, UNSPECIFIED SNOMED Code(s): 767082954 (5) Normocytic anemia Current Visit: Yes Status: Acute Code(s): D64.9 - ANEMIA, UNSPECIFIED SNOMED Code(s): 421019349 (6) Thrombocytopenia Current Visit: Yes Status: Acute Code(s): D69.6 - THROMBOCYTOPENIA, UNSPECIFIED SNOMED Code(s): 783521525 Plan: Continue with current medications, IV zosyn. Stop maintenance fluids with increased PO intake. Continue lisinopril. Discharge anticipated next 24-48 hours
[2020-04-11] MEDS: ONDANSETRON 4 MG/2 ML VIAL IVP PRN (22:54)
[2020-04-12 00:21] VITALS: RESP 18
[2020-04-12] MEDS: SODIUM CHLORIDE 0.9% 1,000 ML IV SCH (04:38)
[2020-04-12] MEDS: PARoxetine 20 MG TAB PO SCH (08:30)
[2020-04-12] MEDS: lisinopriL 10 MG TAB PO SCH (08:30)
[2020-04-12] MEDS: PIPERACILLIN-TAZOBACTAM 3.375 GM in SODIUM CHLORIDE 0.9% 100 ML IVPB SCH (08:30)
[2020-04-12 11:21] LABS: ALT 44 U/L (4-34); AST 39 U/L (14-36); African American GFR (CKD) >90 (>60 ml/min/1.73 sqM); Albumin 3.4 g/dL (3.5-5.0); Alkaline Phosphatase 298 U/L (38-126); Anion Gap 6 mmol/L; Blood Urea Nitrogen 7 mg/dL (7-17); Calcium 8.4 mg/dL (8.4-10.2); Carbon Dioxide 27 mmol/L (22-30); Chloride 107 mmol/L (98-107); Glucose 118 mg/dL (74-99); Non-African American GFR(CKD) >90 (>60 ml/min/1.73 sqM); Sodium 140 mmol/L (137-145); Total Bilirubin 3.9 mg/dL (0.2-1.3); Total Protein 6.6 g/dL (6.3-8.2)
[2020-04-12 16:55] VITALS: BP 137/76; PULSE 100; TEMP 99.6
--- NOTE | 2020-04-13 12:17 | CDI ---
Documentation Clarification Form Date: 04/13/20 From: Eri Ramirez CCS Phone: If you have a question about this query, please contact Prabha Stewart, Personal Banking Advisor at [phone] between 8am and 5pm. Admit Date: 04/05/20 Discharge Date: 04/12/20 Patient Name: Airadna Montgomery Visit Number: [id number] ATTENTION: The Clinical Documentation Specialists (CDI) and [facility] Coding Staff appreciate your assistance in clarifying documentation. Please respond to the clarification below the line at the bottom and electronically sign. The CDI & [facility] Coding staff will review the response and follow-up if needed. Please note: Queries are made part of the Legal Health Record. If you have any questions, please contact the author of this message via ITS. Dear Dr. Goldstein, Conflicting documentation has been found in the medical record: PN 04/11 documents: Ascending cholangitis with gram-negative bacteremia PN 04/07 documents: Anaerobic gram-negative bacilli bacteremia and Enterococcus faecalis UTI H&P, PNs document: Sepsis due to ascending cholangitis.Secondary to biliary obstruction. History/Risk Factors: HTN, Anemia, Bile duct obstruction, UTI, Cholangitis Clinical Indicators: Acidosis, tachycardia, Temp 102.7 Labs: WBC 8.4, 12.4, 15.1- Lactic Acid 3.4 Vitals: BP 130/80, RR 18, WA 129, Temp 102.7, O2 Sat 98 Blood Culture: Anaerobic Gm Negative Bacilli Urine Culture: Enterococcus faecalis Treatment: Zosyn 3.375 mg IVPB, Cipro 250 mg PO Q 12 HR Other Treatment: ERCP with balloon stone extraction and CBD stent placement In your opinion, what is the most clinically appropriate diagnosis for this patient? Sepsis due to cholangitis Sepsis due to UTI Bacteremia Other explanation of clinical findings Unable to determine (no explanation for clinical findings) Sepsis due to cholangitis MTDD
== END 2020-04-12 18:20 | disposition home or self-care (01) | DRG 444 ==
LOC: EC 17:24 → 3SCARD 20:06
PROVIDERS: ADMIT Family Medicine; ATTEND Family Medicine
PROC: 30233R1 Transfusion of Nonautologous Platelets into Peripheral Vein, Percutaneous Approach (ICD-10-PCS; principal; 2020-04-06 07:50)
PROC: 0F798DZ Dilation of Common Bile Duct with Intraluminal Device, Via Natural or Artificial Opening Endoscopic (ICD-10-PCS; principal; 2020-04-06 07:50)
PROC: 0FC98ZZ Extirpation of Matter from Common Bile Duct, Via Natural or Artificial Opening Endoscopic (ICD-10-PCS; principal; 2020-04-06 07:50)
DX: K80.31 Calculus of bile duct with cholangitis, unspecified, with obstruction (principal); A41.9 Sepsis, unspecified organism; E87.2 Acidosis; N39.0 Urinary tract infection, site not specified; D69.6 Thrombocytopenia, unspecified; Z20.828 Contact with and (suspected) exposure to other viral communicable diseases; I10 Essential (primary) hypertension; F32.9 Major depressive disorder, single episode, unspecified; F17.210 Nicotine dependence, cigarettes, uncomplicated; B95.2 Enterococcus as the cause of diseases classified elsewhere; D64.9 Anemia, unspecified; Z79.899 Other long term (current) drug therapy; Z90.49 Acquired absence of other specified parts of digestive tract; Z87.19 Personal history of other diseases of the digestive system; Z98.890 Other specified postprocedural states
CPT/HCPCS: 36415; 43261; 43274; 43277; 71045; 74177; 74330; 80053; 81001; 82150; 82248; 82607; 82728; 82746; 82784; 83540; 83550; 83605; 83615; 83690; 83735; 83883; 83921; 84165; 85025; 85027; 85045; 85384; 85610; 85652; 85730; 86038; 86334; 86431; 86850; 86900; 86901; 87040; 87077; 87086; 87186; 93005; 96361; 96365; 99285

== ENCOUNTER 2020-05-25 11:01 | Day surgery (SDC) | payer BC ==
[2020-05-24 12:44] VITALS: BMI 21.1
[2020-05-25] MEDS ORDERED: LEVOFLOXACIN 500MG-D5W PMX 500 MG in DEXTROSE/WATER 1 100ML.BAG IVPB STA (11:40)
[2020-05-25 11:57] VITALS: RESP 16; TEMP 99.3
[2020-05-25] MEDS ORDERED: INDOMETHACIN 50MG SUPPOSITORY RECTAL ONE (12:00)
[2020-05-25 12:28] LABS: INR 1.1 (<1.2); Prothrombin Time 11.3 sec (9.0-12.0)
[2020-05-25 12:30] LABS: ALT 11 U/L (4-34); AST 27 U/L (14-36); African American GFR (CKD) >90 (>60 ml/min/1.73 sqM); Albumin 4.2 g/dL (3.5-5.0); Alkaline Phosphatase 134 U/L (38-126); Anion Gap 5 mmol/L; Blood Urea Nitrogen 8 mg/dL (7-17); Calcium 8.6 mg/dL (8.4-10.2); Carbon Dioxide 26 mmol/L (22-30); Chloride 107 mmol/L (98-107); Glucose 97 mg/dL (74-99); Non-African American GFR(CKD) 88 (>60 ml/min/1.73 sqM); Potassium 3.6 mmol/L (3.5-5.1); Sodium 138 mmol/L (137-145); Total Bilirubin 4.5 mg/dL (0.2-1.3); Total Protein 7.5 g/dL (6.3-8.2)
[2020-05-25 12:40] LABS: Anisocytosis Slight; HCT 22.8 % (34.0-46.0); HGB 7.8 gm/dL (11.4-16.0); Hypochromasia Slight; MCH 29.2 pg (25.0-35.0); MCHC 34.1 g/dL (31.0-37.0); Mean Platelet Volume 8.9; Platelet Count 100 k/uL (150-450); Poikilocytosis Slight; RBC 2.66 m/uL (3.80-5.40); RDW 19.3 % (11.5-15.5)
[2020-05-25 12:44] LABS: MCV 85.5 fL (80.0-100.0)
[2020-05-25] MEDS ORDERED: LIDOCAINE 1% INJ 10MG/ML (20 ML MDV) ONE (14:10)
[2020-05-25] MEDS ORDERED: MIDAZOLAM 2 MG/2 ML VIAL ONE (14:10)
[2020-05-25] MEDS ORDERED: fentaNYL (PF) 50 MCG/ML 2 ML AMP ONE (14:10)
[2020-05-25] MEDS ORDERED: PROPOFOL 10 MG/ML 20 ML VIAL IV ONE (14:10)
[2020-05-25] MEDS ORDERED: IOPAMIDOL-300 50ML BTL MISCELLANE ONE (14:45)
[2020-05-25] MEDS ORDERED: SODIUM CHLORIDE 0.9% 500 ML 500 ML IV ONE (14:45)
--- NOTE | 2020-05-25 15:05 | P.PCN ---
Date of Procedure: 05/25/20 Procedure(s) Performed: Brief history: Patient is a 69 year-old pleasant lady scheduled for an ERCP as part of evaluation choledocholithiasis. She was admitted hospital with ascending colitis in March 2020 admission she underwent ERCP with CBD stone removal and CBD stent placement was one of the large stones could not be extracted. She is scheduled for repeat ERCP for CBD stone extraction today. Procedure performed: ERCP with CBD stent removal, extension of biliary sphincterotomy/CBD stone extraction Preoperative diagnoses: Recurrent choledocholithiasis IV sedation per anesthesia: Procedure: After informed consent was obtained from the patient and after the risks benefits and complications including bleeding perforation and pancreatitis explained in detail the patient was brought into the endoscopy unit. The patient was placed in prone position and IV conscious sedation was administered by anesthesia under continuous monitoring. The Olympus side-viewing duodenoscope was then inserted into the mouth and esophagus intubated without any difficulty. The scope was gradually advanced into the stomach and duodenum. The major papilla was identified without any difficulty. There was evidence of previous bili recent enterotomy identified. There was evidence of CBD stent which was removed using the biopsy forceps without any difficulty. Following this Using the sphincter tome the common bile duct was cannulated without any difficulty and upon injection of the dye the common bile duct appeared dilated measuring at least 2 cm in diameter with multiple small filling defects and one large filling defects in the distal common bile duct. At this time the biliary sphincterotomy site was extended and sphincterotomy was performed at 11 o'clock position and was extended by at least 3-4 mm in length. Following this an 11.5 mm balloon was passed over the guidewire into the proximal CBD and gently withdrawn and significant amount of sludge with stones were seen exiting the ampulla. I repeated this man over several times and the bile is clear and free flowing. At this time the procedure was terminated and the patient tolerated the procedure well. Pancreatic duct was intentionally not cannulated. Impression: CBD stent removal Fusiform dilation of the proximal common bile duct with mild dilation of the distal common bile duct with multiple filling defects status post extension of the biliary stent enterotomy and balloon stone extraction as described above Pancreatic duct intentionally not cannulated Recommendations: The findings of this examination were discussed with the patient as well as a family. She was advised to follow up in the office in 2-3 weeks. We will consider starting her on Actigall to prevent recurrent CBD stones. She was advised to be on a clear liquid diet today
[2020-05-25 15:23] VITALS: BP 116/65
[2020-05-25 15:46] VITALS: PULSE 74
--- NOTE | 2020-05-27 07:45 | FL ---
Fluoroscopy History: ERCP Stone removal. 1 min 50 sec fl time.
== END 2020-05-25 17:06 | disposition home or self-care (01) ==
LOC: ORWHC2ENDO 11:01
PROVIDERS: ATTEND Internal Medicine Gastroenterology
DX: K80.50 Calculus of bile duct without cholangitis or cholecystitis without obstruction (principal); I10 Essential (primary) hypertension; F17.200 Nicotine dependence, unspecified, uncomplicated; F32.9 Major depressive disorder, single episode, unspecified; K85.90 Acute pancreatitis without necrosis or infection, unspecified; Z88.5 Allergy status to narcotic agent; Z79.899 Other long term (current) drug therapy; Z87.19 Personal history of other diseases of the digestive system
CPT/HCPCS: 43262; 43275; 43264; 80053; 85027; 85610; 74330; J2250; J1956; J2001; J3010; J2704; Q9967